=== PATIENT | male | born 1975 | race Caucasian/White ===

== ENCOUNTER 2018-06-28 13:57 | Emergency (ER) | payer MEDICARE, MEDICAID, SELFPAY ==
[2018-06-28 14:02] VITALS: BP 141/91; PULSE 58; RESP 15; TEMP 36.6; O2SAT 99
--- NOTE | 2018-06-28 15:27 | ED.GENADUL_ITS ---
Discharge Plan Disposition Patient Disposition: HOME Condition: Stable Discharge Details Chief Complaint: EarProblem Clinical Impression: Impacted cerumen of left ear Primary Care Provider: Helen Deleon ED Provider: Hubert Johansen Home Meds and New Rx's Prescriptions: Continued naproxen 500 mg tablet 500 mg PO Q12H PRN (Reason: back pain) Qty: 60 RF: 3 baclofen 10 mg tablet 10 mg PO BID MDD 20mg PRN (Reason: sciatica) Qty: 20 RF: 0 cholecalciferol (vitamin D3) 2,000 unit tablet 2,000 unit PO DAILY Qty: 30 RF: 11 Discharge Instructions Instructions: Cerumen Impaction (ED) Additional Instructions: Please continue to use earwax softening drops and gentle irrigation at home as you have been doing. Feel free to return to emergency department for any new or significant worsening of symptoms otherwise follow-up with your primary care provider as needed for reassessment or if you are unable to fully irrigate ear or if you have pain, drainage, fever chills or other concerns. Referrals: Helen Deleon, [employer] [Primary Care Provider] - (As needed for reassessment) Discharge Data Discharge Date/Time-TO BE ENTERED AT DEPARTURE: 06/28/18 15:30 Medical Decision Making Left ear cerumen impaction. Nurse irrigated. Improvement of symptoms but cerumen remains. Patient does have home flush kit so I encouraged patient to continue to use softening drops and irrigate as he normally would but I do not feel that deep impaction is worth attempting to remove due to potential trauma at this time given no other emergent findings and patient having restored hearing and improved pressure. Patient is in agreement with this plan of care stated understanding that he may return as needed or follow-up with primary care provider after discussion of diagnosis and plan of care patient has no further needs, questions, or concerns and states clear understanding to return to the emergency department for any worsening symptoms.. HPI General Mode of arrival: ambulatory . Date/Time Provider Initiated Documentation: 06/28/18 14:00 . Limitations to Documentation: no limitations . Information obtained by: patient and RN notes reviewed . History of Present Illness 43 year old M presents to the emergency department with the chief complaint of left ear hearing loss, Quality is described as other (denies pain), Patient started experiencing this hour(s) (4) and it has been constant. No relieving factors improve symptom(s), Patient notes no other symptoms.. Related Data Home Medications Medication Instructions Recorded Confirmed naproxen 500 mg tablet 500 mg PO Q12H PRN #60 tab 03/10/18 06/28/18 baclofen 10 mg tablet 10 mg PO BID PRN #20 tab MDD 20mg 05/08/18 06/28/18 cholecalciferol (vitamin D3) 2,000 2,000 unit PO DAILY #30 tab-cap 05/08/18 06/28/18 unit tablet Previous Rx's Medication Instructions Recorded naproxen 500 mg tablet 500 mg PO Q12H PRN #60 tab 03/10/18 baclofen 10 mg tablet 10 mg PO BID PRN #20 tab MDD 20mg 05/08/18 cholecalciferol (vitamin D3) 2,000 2,000 unit PO DAILY #30 tab-cap 05/08/18 unit tablet Allergies Allergy/AdvReac Type Severity Reaction Status Date / Time No Known Allergies Allergy Verified 06/28/18 14:07 General Stated Complaint: EarProblem CHRISTOPHER: 4 Review of Systems Constitutional Denies body ache(s), Denies chills, Denies fever(s) and Denies headache(s) ENT Reports as per HPI, Reports abnormal hearing, Denies ear discharge, Denies otalgia, Denies headache(s), Denies disequilibrium and Denies sinus pain Gastrointestinal Denies abdominal pain, Denies nausea and Denies vomiting Integumentary/Breasts Denies rash Neurologic Reports abnormal hearing, Denies confusion, Denies headache(s), Denies sensory deficit and Denies disequilibrium Psychiatric Denies confusion [facility] Surgical History Fracture, Open Treatment (07/28/15) Family History Mother Diabetes Depression Stroke Father No problems noted. Sister Substance abuse Alcohol abuse Depression Sister Essential hypertension Depression Sister Alcohol abuse Sister Substance abuse Alcohol abuse Depression Neoplasm Asthma Grandfather No problems noted. Son Depression Son Depression Social History Smoking and Tabacco status: Current every day Exam Const General: cooperative, no acute distress and not ill appearing Orientation: alert, awake and oriented x3 HENMI Head: normal to inspection and normocephalic Ears: external ears normal, mastoids normal and EAC abnormal cerumen impaction bilaterally; no erythema, no edema and no EA tenderness General nose exam: external nose normal Mouth: moist mucous membranes Neck Neck: normal visual inspection, full ROM and no lymphadenopathy Resp Effort & Inspection: normal respiratory effort, able to speak in complete sentences and no respiratory distress Skin General skin exam: no rashes or lesions noted Neuro General: alert, awake, oriented x3, moves all extremities and no focal motor deficits Sensory Exam: no sensory deficits noted Course Vital Signs Temperature 36.6 C 06/28/18 14:02 Pulse 58 L 06/28/18 14:02 Respiratory Rate 15 06/28/18 14:02 Blood Pressure 141/91 H 06/28/18 14:02 Pulse Oximetry 99 06/28/18 14:02 Temperature 36.6 C 06/28/18 14:02 Temperature Source Temporal Artery Scan 06/28/18 14:02 Pulse 58 L 06/28/18 14:02 Respiratory Rate 15 06/28/18 14:02 Respiratory Effort Non-Labored 06/28/18 14:06 Blood Pressure 141/91 H 06/28/18 14:02 Blood Pressure Position Sitting 06/28/18 14:02 Pulse Oximetry 99 06/28/18 14:02 Oxygen Delivery Method Room Air 06/28/18 14:02 Oxygen Flow Rate 0 06/28/18 14:02 Pain Level 0 06/28/18 14:10
== END 2018-06-28 15:30 | disposition home or self-care (01) ==
PROVIDERS: Emergency Provider Nurse Practitioner Family
DX: H61.22 Impacted cerumen, left ear (principal)
CPT/HCPCS: 69209; 99282

== ENCOUNTER 2018-09-15 20:51 | Emergency (ER) | payer MEDICARE, MEDICAID, SELFPAY ==
--- NOTE | 2018-09-15 20:55 | W.ED.GENAD ---
Discharge Plan Disposition Patient Disposition: HOME Condition: Stable Discharge Details Chief Complaint: EarProblem Clinical Impression: Left ear impacted cerumen Primary Care Provider: Helen Deleon ED Provider: Garrett Hays Home Meds and New Rx's Prescriptions: No Action naproxen 500 mg tablet 500 mg PO Q12H PRN (Reason: back pain) Qty: 60 RF: 3 cholecalciferol (vitamin D3) 2,000 unit tablet 2,000 unit PO DAILY Qty: 30 RF: 11 Discharge Instructions Instructions: Cerumen Impaction (ED) Medical Decision Making 43 yo male with hx of cerumen impaction comes in with cc of left ear pain for a week, no fevers or chills. on exam has left cerumen impaction, will have nursing irrigate and reassess. External canal is normal and normal external mastoid exam nursing able to get significant amount of ear wax out and he feels better, normal tm on exam. Will d/c home Differential Diagnosis cerumen impaction, aom HPI General Mode of arrival: ambulatory. Date/Time Provider Initiated Documentation: 09/15/18 20:52. Limitations to Documentation: no limitations. Information obtained by: patient. History of Present Illness 43 year old M presents to the emergency department with the chief complaint of left ear pain, described as moderate, Quality is described as aching, and is localized to the left (ear). Patient started experiencing this week(s) (1) and it has been constant. No relieving factors improve symptom(s), No exacerbating factors reported . Patient notes no other symptoms.. Patient did receive the following treatments prior to arrival, none Related Data Home Medications Medication Instructions Recorded Confirmed naproxen 500 mg tablet 500 mg PO Q12H PRN #60 tab 18 09/15/18 cholecalciferol (vitamin D3) 2,000 2,000 unit PO DAILY #30 tab-cap 05/08/18 09/15/18 unit tablet Previous Rx's Medication Instructions Recorded naproxen 500 mg tablet 500 mg PO Q12H PRN #60 tab 03/10/18 cholecalciferol (vitamin D3) 2,000 2,000 unit PO DAILY #30 tab-cap 05/08/18 unit tablet Allergies Allergy/AdvReac Type Severity Reaction Status Date / Time No Known Allergies Allergy Verified 04/29/19 21:00 General CHRISTOPHER: 4 Review of Systems Review of Systems All systems reviewed & are unremarkable except as noted in HPI and below Constitutional Denies chills and Denies fever(s) Eyes Denies loss of vision ENT Denies change in voice Cardiovascular Denies chest pain and Denies dyspnea Respiratory Denies dyspnea Gastrointestinal Denies abdominal pain, Denies nausea and Denies vomiting Neurologic Denies loss of vision PFSH Surgical History Fracture, Open Treatment (07/28/15) Family History Mother Diabetes Depression Stroke Father No problems noted. Sister Substance abuse Alcohol abuse Depression Sister Essential hypertension Depression Sister Alcohol abuse Sister Substance abuse Alcohol abuse Depression Neoplasm Asthma Grandfather No problems noted. Son Depression Son Depression Social History Smoking/Tobacco Use Status: Current every day Alcohol Intake: never Drug use: Occasionally Do you feel safe in your relationship?: Yes Exam Const General: no acute distress Orientation: alert HENMT Head: normal to inspection Ears: external ears normal General nose exam: external nose normal Mouth: moist mucous membranes Eyes General: appearance normal, both eyes and all related structures Neck Neck: normal visual inspection Resp Effort & Inspection: normal respiratory effort and able to speak in complete sentences Cardio Rate: regular rate Skin General skin exam: no rashes or lesions noted Neuro General: alert and oriented x3 Extrem General: normal to inspection Psych Mental Status: mental status grossly normal
[2018-09-15 20:58] VITALS: BP 149/85; PULSE 70; RESP 18; TEMP 37.1; O2SAT 97
== END 2018-09-15 22:20 | disposition home or self-care (01) ==
PROVIDERS: Emergency Provider Emergency Medicine
DX: H61.22 Impacted cerumen, left ear (principal)
CPT/HCPCS: 69209; 99281

== ENCOUNTER 2019-04-26 00:18 | Emergency (ER) | payer MEDICARE, MEDICAID, SELFPAY ==
[2019-04-26 00:29] VITALS: BP 161/82; PULSE 66; RESP 20; TEMP 36.8; O2SAT 100
--- NOTE | 2019-04-26 00:35 | ED.GENADUL_ITS ---
Discharge Plan Disposition Patient Disposition: HOME Condition: Good Discharge Details Chief Complaint: Chest/Rib Clinical Impression: Nightmare, Acute post-traumatic stress disorder Primary Care Provider: Helen Deleon ED Provider: Josh Castellon Home Meds and New Rx's Prescriptions: No Action naproxen 500 mg tablet 500 mg PO Q12H PRN (Reason: back pain) Qty: 60 RF: 3 Discharge Instructions Additional Instructions: If you notice any worsening of your symptoms, or any new symptoms such as vomiting, diarrhea, fever, chills, shortness of breath, chest pain, numbness, weakness, or fainting , please return immediately to the emergency department for reevaluation. Please follow up with your primary care provider as soon as possible for reassessment and reevaluation. As always, it was a pleasure participating in your medical care today. Referrals: Helen Deleon, [employer]LE[employer]ITY REGISTRAR [Primary Care Provider] - Medical Decision Making This is a 44-year-old male who presents today for an atypical history. He is a history of seizures when he was a young child, but none for years. He states that this evening he drank some twisted teas, smoke some good weed, had some tuna sandwiches, and then developed left upper quadrant pain, and passed out or had a seizure secondary to mild tremulous movement. EMS was contacted and upon their arrival he is mentating well and showed no focal neurologic deficits. He still complaining of notable left upper quadrant abdominal pain. Upon arrival to the ED his pain was mainly in the left upper quadrant, no chest pain. He has no pleuritic pain. No previous history of current iliac disease. Physical exam does demonstrate reproducible left upper quadrant abdominal pain. Bedside ultrasound shows no evidence of pneumothorax pericardial tamponade not other significant cardiac abnormality. He has no focal neurologic deficits on exam. Differential is broad, gastric ulcer is potential but unlikely due to the typical history. Seizure versus syncope is certainly on the differential. However with a combination of abdominal chest pain in conjunction with the neurologic symptoms in syncope that occurred dissection is also on the differential. We will get CT imaging, perform cardiac work-up, rehydrate, and reassess. 12:59 AM After 15 minutes here in the ED without any medication intervention the patient has had complete resolution of his symptomatology. 1:42 AM The patient's laboratory work-up is recurrent and is notably unremarkable. No white count, no significant electrolyte abnormalities. Troponin normal, alcohol is only 89. On reassessment patient continues to be pain-free. He is refusing CT imaging. Patient states that he recalls the entire initial event, and that it was not a seizure or syncope that he had, rather it was a nightmare secondary to his PTSD, all of which he recalls. He states that this is happened before, and that this is not new. He is wanting to get in touch with his outpatient counseling. He does not want any additional help at this time. He continues to demonstrate a normal neurologic exam, and he is pain-free right now. I did discuss imaging options for the patient and at this time through notable discussion, weighing the risks and benefits, and a shared decision making process the patient has refused imaging at this time. Respecting the patient's wishes we will hold off on imaging. I did discuss how we could be potentially missing a life-threatening etiology, which could lead to lifelong and disability and the patient does clearly understand this. He insists that his symptoms were from a bad dream and not something else concerning. I did discuss with the patient admission/observation to the hospital/ED, and at this time through notable discussion, weighing the risks and benefits, utilizing a shared decision making process, and with a very clear discussion on the benefit of admission and the risks associated with discharge including the unlikely but potential worst case scenario of or lifelong disability the patient has refused admission and would like to go home. Respecting the patient's wishes, they will be discharged home. Patient is also made it very clear that he does not want me to discuss any of this with his secondary to her not knowing any of his past. He would like to bring this up with her personally in a separate environment at home. I have extensively reviewed the treatment plan and discharge instructions with the patient. I have addressed all patient concerns at this time. The patient was made aware of what symptoms to monitor for that would warrant a return to the emergency department. Discussed the plan with the patient, they demonstrate verbal understanding and agreement with our assessment and plan at this time. EKG 00: 46 Rate 63, intervals normal, sinus rhythm, no significant ST elevations or depressions, mild non-tombs stoning elevation less than 1 mm in V2 and V3, old Q waves in lead III. Prior EKG from 02/03 demonstrates similar findings. HPI General Date/Time Provider Initiated Documentation: 04/26/19 00:26 . HPI Narrative: This is a 44-year-old male with a past medical history of depression, hypertension, and history of seizures as a young child which is resolved on its own, who presents today for potential syncope versus seizure and left upper quadrant epigastric pain. The patient states that this evening he was enjoying an evening of alcohol and intimacy with his , they smoked some weed, he drank some alcohol, and then roughly 1 hour ago he developed shortness of breath, severe stabbing left upper quadrant pain, had a tremor, became unresponsive for a short brief period of time. EMS was contacted, when they arrived the patient would answer all questions, vital signs are stable and he demonstrated a normal neurologic exam. Left upper quadrant pain continued. He is brought to the ER for further evaluation. Vital signs remained stable. Patient states that his symptoms are not pleuritic, and the pain feels like it is just under the left side of his rib cage. He denies eating anything spicy tonight, and only had tunafish. He denies any symptoms like this before. He denies any history of significant reflux. He has no other complaints at this time. He denies any vomiting, diarrhea, chest heaviness or significant chest tightness. He denies a history of cardiac disease. He denies any other complaints at this time. Related Data Home Medications Medication Instructions Recorded Confirmed naproxen 500 mg tablet 500 mg PO Q12H PRN #60 tab 03/10/18 04/26/19 Previous Rx's Medication Instructions Recorded naproxen 500 mg tablet 500 mg PO Q12H PRN #60 tab 03/10/18 Allergies Allergy/AdvReac Type Severity Reaction Status Date / Time No Known Allergies Allergy Verified 04/26/19 00:37 General CHRISTOPHER: 4 Review of Systems All systems reviewed & are unremarkable except as noted in HPI and below PFSH Social History (Updated 10/22/18 @ 09:42 by Sunny Bojorquez) Smoking/Tobacco Use Status: Current every day Tobacco Type: cigarettes Alcohol Intake: current Alcohol Intake frequency: holidays/special occasions only Drug use: Never Substance use type: former substance user Caregiver/Support person: No Household members: spouse Housing: house Communication Needs: None Do you need help understanding health information?: Rarely Pets and animals: Yes Pets and animals: cat(s) Sexually active: Yes Do you think of yourself as: straight/heterosexual Current gender identity: female What is your relationship status?: How often do you talk on the phone with friends or family?: three or more times per week How often do you get together with friends or relatives?: three or more times per week How often do you attend mandaen or anabaptism services?: decline to answer Do you belong to any clubs or organized social groups?: no Panel score (0-1 are the most socially isolated patients): 2 What type of physical activity do you participate in: walking and weight lifting Duration: > 90 minutes/day Frequency: 5-6 times per week Karen/Oriental Orthodox: No preference Agree to transfusion: No Seatbelt use: always Helmet use: No Drive intox or ride w/intox national dedicated truck driver: No Do you feel safe in your relationship?: Yes Exam Narrative Exam Narrative: 1.Const: Well-nourished, Well-developed, appearing stated age 2.Eyes: PERRL, no conjunctival injection, and symmetrical lids. 3.ENT: Atraumatic external nose and ears. Moist MM. Neck: Symmetric, trachea midline, No thyromegaly. 4.CVS: +S1/S2, No murmurs or gallops. Peripheral pulses 2+ and equal in all extremities. Brisk capillary refill in all extremities. 5.RESP: Unlabored respiratory effort. Clear to auscultation bilaterally. No wheezes rales or rhonchi 6.GI: Soft,Nondistended, No hepatosplenomegaly. No guarding or rebound. Mild reproducible tenderness in left upper abdominal quadrant. 7.MSK: Normocephalic/Atraumatic, Extremities w/o deformity or ttp No cyanosis or clubbing, Normal movement of all extremities 8.Skin: Warm, Dry. No rashes or lesions. 9.Neuro: partition notcher II-XII grossly intact. Sensation grossly intact, no focal neurologic deficits. All 6 cardinal planes of vision are fully intact. No evidence of rotatory or vertical nystagmus. The patient demonstrated a normal [id number], good dexterity. There was no evidence of dysdiadochokinesia. Patient was able to ambulate without difficulty. There was no wide-based gait. Romberg testing was normal. [id number] testing was normal. Sensation was intact bilaterally as well as muscle strength bilaterally for all extremities. Patient was able to verbalize butter cup with no slurring, or miss pronunciation. 10.Psych: (AAO) x3. Appropriate mood and affect
--- NOTE | 2019-04-26 00:42 | NUR.NOTE ---
Nursing Note: oxygen d/c,d, maintaining saturation at 97-98%. pain is gone at the present time
[2019-04-26 00:59] LABS: Abs Immature Grans 0.01 k/cumm (0.0-0.09); Absolute Basophil Count 0.07 k/cumm (0.0-0.2); Absolute Eosinophil Count 0.44 k/cumm (0.0-0.7); Absolute Lymphocyte Count 3.85 k/cumm (1.2-3.4); Absolute Monocyte Count 0.78 k/cumm (0.11-0.7); Absolute Neutrophil Count 4.47 k/cumm (1.2-6.7); Basophils % 0.7; Eosinophils % 4.6; HCT 41.8 % (40.0-50.0); HGB 15.1 g/dL (13.5-17.5); Immature Grans % 0.1; Mean Corp. HGB Concentration 36.1 g/dL (32.0-36.0); Mean Corpuscular Hemoglobin 31.5 pg (27.0-33.0); Mean Corpuscular Volume 87.1 fL (80-95); Mean Platelet Volume 10.7 fL (8.0-11.0); Monocytes % 8.1; Neutrophils % 46.5; Platelet Count 360 x1000/uL (130-400); RBC Distribution Width 12.7 % (11.8-14.1); White Blood Cell Count 9.62 k/cumm (4.4-10.8)
[2019-04-26] MEDS: Normal Saline 1,000 ML 1000 ML IV (01:00)
[2019-04-26 01:17] LABS: ETHANOL BLOOD 89.6 mg/dL (<3)
[2019-04-26 01:19] LABS: ALT 35 U/L (16-63); AST 19 U/L (15-37); Albumin 4.3 g/dL (3.4-5.0); Alkaline Phosphatase 88 U/L (46-116); Anion Gap 1.7 mmol/L (3-11); BUN 10 mg/dL (7-18); Bilirubin, Total 0.4 mg/dL (0.2-1.0); CO2 23.3 mmol/L (21.0-32.0); CREATININE 0.97 mg/dL (0.70-1.30); Calcium 9.3 mg/dL (8.5-10.1); Chloride 105 mmol/L (98-107); Glucose 101 mg/dL (74-106); Potassium 3.3 mmol/L (3.5-5.1); Sodium 130 mmol/L (136-145); Total Protein 7.4 g/dL (6.4-8.2)
[2019-04-26 01:20] LABS: Troponin I < 0.05 ng/Ml (<0.06)
[2019-04-26] MEDS: Omnipaque 350 MG/ML 100 ML BTL IJ (01:24)
[2019-04-26 01:53] VITALS: BP 137/93; PULSE 56; RESP 18; O2SAT 99
== END 2019-04-26 02:05 | disposition home or self-care (01) ==
PROVIDERS: Emergency Provider Student in an Organized Health Care Education/Training Program
DX: F51.5 Nightmare disorder (principal); F43.10 Post-traumatic stress disorder, unspecified
CPT/HCPCS: 80053; 93005; 99284; 80320; 84484; 85025; 93010; J3490

== ENCOUNTER 2020-01-19 04:15 | Outpatient (CLI) | payer MEDICARE, MEDICAID, SELFPAY ==
[2020-01-19 10:06] LABS: ALT 37 U/L (16-63); AST 15 U/L (15-37); Albumin 4.1 g/dL (3.4-5.0); Alkaline Phosphatase 92 U/L (46-116); Anion Gap 9.2 mmol/L (3-11); BUN 21 mg/dL (7-18); Bilirubin, Total 0.6 mg/dL (0.2-1.0); CO2 24.8 mmol/L (21.0-32.0); CREATININE 1.19 mg/dL (0.70-1.30); Calcium 9.5 mg/dL (8.5-10.1); Calculated LDL 105 mg/dL (<100); Chloride 107 mmol/L (98-107); Cholesterol 180 mg/dL (<200); Glucose 93 mg/dL (74-106); HDL Cholesterol 52 mg/dL (40-60); Potassium 4.7 mmol/L (3.5-5.1); Sodium 141 mmol/L (136-145); Total Protein 6.7 g/dL (6.4-8.2); Triglyceride 117 mg/dL (<150)
[2020-01-21 04:44] LABS: Vitamin D 25 Total 38.8 ng/ml (30-100)
[2020-01-21 13:13] LABS: Testosterone, Total 448 ng/dL (240-950)
== END 2020-01-19 04:35 ==
DX: I10 Essential (primary) hypertension (principal); E03.9 Hypothyroidism, unspecified; E55.9 Vitamin D deficiency, unspecified; F17.200 Nicotine dependence, unspecified, uncomplicated
CPT/HCPCS: 36415; 80053; 80061; 82306; 84403

== ENCOUNTER 2020-02-01 01:12 | Outpatient (CLI) | payer MEDICARE, MEDICAID, SELFPAY ==
--- NOTE | 2020-02-01 08:00 | DI.CT_ITS ---
EXAM: CT ABDOMEN PELVIS W CLINICAL HISTORY: Intermittent LLQ pain x 9 months,? DIVERTICULITIS,R10.32 TECHNIQUE: COMPARISON: No exams were available for comparison FINDINGS: CT examination of the abdomen and pelvis was performed with bolus infusion of 100 cc of Omnipaque 350 . Images obtained through the lung bases are unremarkable. The liver and spleen appear normal as does the pancreas. Gallbladder and bile ducts are unremarkable. The right adrenal contains an 18 millimeter in diameter nodule with average attenuation 39 Hounsfield units. Probably benign but indeterminate, follow-up adrenal CT recommended in 12 months. 10 millim eter left adrenal lesion also. Kidneys appear normal with no evidence of renal mass, hydronephrosis, or nephrolithiasis. There is w all urinary bladder this is nonspecific but may represent bladder outlet obstruction versus cystitis. Clinically. There is no evidence of abdominal or pelvic adenopathy. Abdominal aorta is of normal diameter and no major vascular abnormality is seen. Appendix is normal. No evidence diverticulitis or bowel obstruction. No significant abdominal wall hernia seen. Impression: Mild urinary bladder wall thickening, urinary bladder outlet obstruction versus cystitis. Incidental 18 millimeter right adrenal nodule, probably benign, follow-up adrenal CT recommended in 1 2 months. RADIATION DOSE DELIVERED: 1,162.92mGy.cm Total DLP 1,162.92mGy.cm Total DLP DATA REPOSITORY: All CT scans at this facility are submitted to the National Radiology Data Registry (NRDR) Dose Index Registry (DIR) with the [employer] (ACR). RADIATION OPTIMIZATION: All CT scans at this facility use at least one of these dose optimization te chniques: automated exposure control; mA and/or kV adjustment per patient size (includes targeted exa ms where dose is matched to clinical indication); or iterative reconstruction.
[2020-02-01] MEDS: Omnipaque 350 MG/ML 50 ML BTL IJ (12:44)
[2020-02-01] MEDS: Omnipaque 350 MG/ML 100 ML BTL IJ (12:44)
[2020-02-01] MEDS: Normal Saline - Diluent 50 ML VIAL IV (12:46)
== END 2020-02-01 01:32 ==
DX: E27.8 Other specified disorders of adrenal gland (principal); R10.32 Left lower quadrant pain
CPT/HCPCS: 74177; J3490; Q9967

== ENCOUNTER 2020-03-13 13:37 | Emergency (ER) | payer MEDICARE, MEDICAID, SELFPAY ==
--- NOTE | 2020-03-13 13:38 | W.ED.GENAD ---
Discharge Plan Disposition Patient Disposition: HOME Condition: Good Discharge Details Clinical Impression: Impacted cerumen of left ear Primary Care Provider: Helen Deleon ED Provider: Jess Delgado Home Meds and New Rx's Prescriptions: Continued baclofen 10 mg tablet 10 mg PO BID MDD 20mg PRN (Reason: sciatica) Qty: 20 RF: 0 naproxen 500 mg tablet 500 mg PO Q12H PRN (Reason: back pain) Qty: 60 RF: 3 Discharge Instructions Instructions: Cerumen Impaction (ED) Additional Instructions: Your ear has been flushed today. Please continue with your previous measurement. Please make sure to take time to care for your ears as we discussed. If you notice any pain, discharge, fever/chills or new/worsening symptom please seek care urgently once again. Otherwise, please follow-up with primary care in the next 2 weeks for reevaluation and discuss your recurrent cerumen impaction. Referrals: Helen Deleon, DAVID [Primary Care Provider] - Discharge Data Discharge Date/Time-TO BE ENTERED AT DEPARTURE: 03/13/20 14:45 Medical Decision Making Patient presents today with chief complaint of left sided ear pain. Reports has been worsening over the past several days. He has difficulty with cerumen impactions here historically. States that he did ask his to try to clean this out as a doing flush kit at home but she was unsuccessful this morning. States that he has had a hard time hearing and has had some vertiginous symptoms. Denies any fevers or chills. Minimal discomfort in the left ear. On exam, patient appears nontoxic. He does have diminished hearing in the left ear. She has impacted cerumen on the affected side. No mastoid tenderness. No lymphadenopathy. Patient does not appear systemically ill. She is able to able to cleanse the ear and he is feeling much improved at this time. Is requesting discharge. He does use earwax softening drops nightly and has his claims on a routine basis. Over, she does not allow for enough time for his work week to have his ears flushed. I encouraged to take the time to do so. Strict return precautions were discussed. Advised that he follow-up with primary care in 1 to 2 weeks for reevaluation and discuss any continued options that have yet to be explored for repetitive cerumen impaction. All his questions and concerns were addressed and is agreement this plan HPI General Mode of arrival: ambulatory. Date/Time Provider Initiated Documentation: 03/13/20 13:38. Limitations to Documentation: no limitations. Information obtained by: patient and RN notes reviewed. History of Present Illness 45 year old M presents to the emergency department with the chief complaint of left ear blocked, diminished hearing, described as mild, with intensity rated at 1. Quality is described as aching, Patient reports no radiation. Patient started experiencing this day(s) (1) and it has been constant. No relieving factors improve symptom(s), No exacerbating factors reported . Patient notes no other symptoms.. Patient did receive the following treatments prior to arrival, other ( attempted to irrigate without success) Related Data Home Medications Medication Instructions Recorded Confirmed baclofen 10 mg tablet 10 mg PO BID PRN #20 tab MDD 20mg 09/08/19 03/13/20 naproxen 500 mg tablet 500 mg PO Q12H PRN #60 tab 09/08/19 03/13/20 Previous Rx's Medication Instructions Recorded baclofen 10 mg tablet 10 mg PO BID PRN #20 tab MDD 20mg 09/08/19 naproxen 500 mg tablet 500 mg PO Q12H PRN #60 tab 09/08/19 Allergies Allergy/AdvReac Type Severity Reaction Status Date / Time No Known Allergies Allergy Verified 03/13/20 13:45 General CHRISTOPHER: 4 Review of Systems Constitutional Constitutional: Reports as per HPI and Denies headache(s) Eyes Eyes: Reports as per HPI, Denies eye discharge and Denies irritation ENT Ears, Nose, Mouth, and Throat: Reports as per HPI and Denies headache(s) Cardiovascular Cardiovascular: Reports as per HPI, Denies chest pain and Denies dyspnea Respiratory Respiratory: Reports as per HPI and Denies dyspnea Gastrointestinal Gastrointestinal: Reports as per HPI, Denies abdominal pain, Denies change in bowel habits, Denies nausea and Denies vomiting Integumentary/Breasts Skin/Breast: Reports as per HPI and Denies rash Neurologic Neurologic: Reports as per HPI and Denies headache(s) [facility] Medical History (Updated 03/13/20 @ 14:37 by JET Carrasquillo) Abdominal pain Depression (02/18/17) Essential hypertension Impotence due to erectile dysfunction LLQ abdominal pain Lumbago (12/24/12) Pressure sensation in left ear (07/18/17) Smoking (09/04/17) Vitamin D deficiency Surgical History Fracture, Open Treatment (07/28/15) ORIF-RIGHT DISTAL TIBIA; DR. REYES Family History Mother Diabetes Depression Stroke Hyperlipidemia Hypertension Father Heart disease Hyperlipidemia Hypertension Sister Substance abuse Alcohol abuse Depression Sister Essential hypertension Depression Sister Alcohol abuse Sister Substance abuse Alcohol abuse Depression Asthma Cancer Son Depression Son Depression Social History (Updated 10/27/19 @ 09:31 by Sunny Bojorquez) Smoking/Tobacco Use Status: Current every day Tobacco Type: cigarettes Quit status: considering quitting Second Hand Exposure: Yes Alcohol Intake: current Alcohol Intake frequency: holidays/special occasions only Drug use: Never Substance use type: former substance user Counseling given: No Counseling provided: none Caregiver/Support person: No Household members: spouse Housing: house Communication Needs: None Do you need help understanding health information?: Rarely Pets and animals: Yes Pets and animals: cat(s) Sexually active: Yes Do you think of yourself as: straight/heterosexual Current gender identity: male What is your relationship status?: How often do you talk on the phone with friends or family?: three or more times per week How often do you get together with friends or relatives?: three or more times per week How often do you attend sikhism or scientologist services?: 1-3 times per year Do you belong to any clubs or organized social groups?: no Panel score (0-1 are the most socially isolated patients): 2 What type of physical activity do you participate in: walking and weight lifting Duration: 45-60 minutes/day Frequency: 5-6 times per week Karen/Bahai: Kaitlin Special karen needs: No Agree to transfusion: No Seatbelt use: always Helmet use: No Drive intox or ride w/intox 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 Head: normal to inspection, normocephalic and atraumatic Ears: hearing grossly normal bilaterally, external ears normal, TM normal on the right and left TM abnormal (cerumen impaction) General nose exam: external nose normal and nares normal Face and sinus: normal facial exam, sinuses nontender and face symmetric Mouth: oral mucosae normal, lip normal, tongue normal, oropharynx normal and moist mucous membranes Teeth and gingiva: dentition normal Throat: posterior oropharynx normal, tonsils normal and uvula midline Eyes General: appearance normal, both eyes and all related structures Neck Neck: normal visual inspection, full ROM, no lymphadenopathy and no meningeal signs Resp Effort & Inspection: normal respiratory effort, able to speak in complete sentences and no respiratory distress Auscultation: clear to auscultation bilaterally, no rales, no rhonchi and no wheezes Cardio Rate: regular rate Rhythm: regular rhythm Heart Sounds: S1 normal and S2 normal Skin General skin exam: no rashes or lesions noted Neuro General: patient alert and patient awake Cognition: normal cognition Speech: speech normal Gait: normal gait Psych Appearance: grossly normal and well kempt Mental Status: mental status grossly normal Speech and Movement: speech and movement normal
[2020-03-13 13:39] VITALS: BP 138/99; PULSE 81; TEMP 36.3; O2SAT 100
== END 2020-03-13 14:45 | disposition home or self-care (01) ==
PROVIDERS: Emergency Provider Physician Assistant
DX: H61.22 Impacted cerumen, left ear (principal); I10 Essential (primary) hypertension
CPT/HCPCS: 69209; 99282; 99283

== ENCOUNTER 2020-05-06 23:03 | Emergency (ER) | payer MEDICARE, MEDICAID, SELFPAY ==
[2020-05-06] VITALS (11 sets, daily range): BP systolic 126–163; BP diastolic 71–101; PULSE 63–74; RESP 10–21; TEMP 36.6; O2SAT 93–99
--- NOTE | 2020-05-06 00:30 | DI.RAD_ITS ---
EXAM: XR PORTABLE CHEST AP CLINICAL HISTORY: left chest pain TECHNIQUE: 2D digital imaging was performed. COMPARISON: CR CHEST 2 VIEWS PA,LAT from 02/09/2017 FINDINGS: MEDIASTINUM: Normal. HEART: Normal. PULMONARY VASCULATURE: Normal. LUNGS: Mild bilateral parahilar interstitial alveolar infiltrates are seen, left greater than right. PLEURAL SPACE: No pleural effusion or pneumothorax. BONE:Within normal limits for the patient's age. OTHER FINDINGS:There are low lung volumes. IMPRESSION: Mild perihilar interstitial and alveolar infiltrates which may represent atelectasis. Pulmonary sunny a or infection cannot be excluded. Please correlate clinically. DATA REPOSITORY: RADIATION DOSE DELIVERED:
--- NOTE | 2020-05-06 23:00 | RT.EKG_ITS ---
APPROVED REPORT Exam: Resting ECG Patient Location: E HR:64 bpm ECG Measurements Heart Rate 64 AXIS OR 211 P 54 QRSd 98 QRS 47 QT 407 T 66 QTc 421 Conclusion Sinus rhythm...normal P axis, V-rate 60- 99 Prolonged OR interval...OR >210, V-rate 50- 90 physician: Rate 64, sinus rhythm, intervals normal, no significant ST elevations or depressions, no evidence of STEMI.
--- NOTE | 2020-05-06 23:14 | W.ED.GENAD ---
Discharge Plan Disposition Patient Disposition: HOME Condition: Stable Discharge Details Clinical Impression: Chest pain, Acute chest wall pain Primary Care Provider: Helen Deleon ED Provider: Josh Castellon Home Meds and New Rx's Prescriptions: Continued baclofen 10 mg tablet 10 mg PO BID MDD 20mg PRN (Reason: sciatica) Qty: 20 RF: 0 naproxen 500 mg tablet 500 mg PO Q12H PRN (Reason: back pain) Qty: 60 RF: 3 Discharge Instructions Instructions: Chest Pain (ED), Chest Wall Pain (ED) Additional Instructions: At this time your multiple EKGs and multiple heart markers have returned normal. Your chest x-ray shows no evidence of pneumonia, and your symptoms have resolved with ibuprofen/Toradol. I suspect that the cause of your symptoms is likely a muscle strain from overwork however with your history I do feel it is very important that you get a stress test at some point soon. We will help facilitate this and you will be contacted by the stress test department for scheduling. At this time your symptoms are inconsistent with a heart attack. As we discussed together you preferred but I do not work-up your at this early hour, however she can call me and discuss any questions that she may have. I will be working straight for the next week, and my shifts start at 8 PM. If you notice any worsening of your symptoms, or any new symptoms such as vomiting, diarrhea, fever, chills, shortness of breath, chest pain, numbness, weakness, or fainting , please return immediately to the emergency department for reevaluation. Please follow up with your primary care provider as soon as possible for reassessment and reevaluation. As always, it was a pleasure participating in your medical care today. Referrals: Helen Deleon, ENGRAVER SIGNATURE [Primary Care Provider] - Medical Decision Making This is a 45-year-old male with a past medical history of hypertension that is poorly controlled, who presents today for evaluation of left-sided chest pain. Patient states that for the last day or so he has felt slightly weak and out of sorts. Notable fatigue compared to normal. This evening at 7 PM he developed a significant left-sided chest wall tightness, with tingling extending down his left arm. He denies any tearing stabbing or ripping sensation. He denies any syncope or back pain. Pain has been unremitting since then. He has not been doing much in the way of exertion over the last few days secondary to his fatigue, and denies any exertional component otherwise. He does admit to a strong family history of cardiac disease including pacemaker for his father, massive myocardial infarction in the 40s for his grandfather. He does smoke significantly and has been doing so for years. He does admit to mild pleuritic component to his symptoms but denies any cough fever or chills. Denies PE risk factors such as recent long car rides, immobilization, recent surgery, prior history of DVT or PE, family history of PE or DVT, morbid obesity, exogenous estrogen and smoking, hemoptysis, history of cancer. No other complaints at this time. No other modifying factors. Exam is unremarkable, vital signs appear stable. EKG shows no signs of STEMI. Differential is broad but includes atypical cardiac etiology, PE, or musculoskeletal strain. We will get serial troponins, D-dimer, evaluate for heart strain with a proBNP, give nitroglycerin monitor closely and reassess. 3 AM Patient was given 2 nitroglycerin and had no change or improvement of his symptoms whatsoever. About 30 minutes later he was given a Lidoderm patch and Toradol and had notable improvement of his symptomatology. Work-up has returned, no white count bandemia or left shift. D-dimer is unremarkable, no suspicion for PE. Electrolytes normal, proBNP is normal suggesting no heart strain, initial and repeat troponin are normal, initial and repeat EKG are unchanged with no evidence of STEMI or hyperacute T wave changes of significance. Thyroid and lipase are normal. Chest x-ray negative for significant acute process, mild atelectasis however the patient denies any significant cough, fever or chills. No clinical evidence of pneumonia at all. Signs and symptoms at this time are clinically inconsistent with ACS and more consistent with musculoskeletal strain. On reassessment pain and symptomatology is completely resolved. Symptoms are inconsistent with PE or dissection. At this time patient would like to go home. I did offer potential prolonged observation here overnight in the hospital and he has declined. I did recommend outpatient stress testing, and we will start the process for this on his behalf. I did offer to call his however due to the current hour he would prefer that I not called in to wake her up, and I did make it clear that I am available to discuss this case at any time if she would like to call later during my subsequent chest. At this time with his signs and symptoms clinically inconsistent with acute life-threatening etiology the patient is stable for discharge home. Discussed red flags which return. I have extensively reviewed the treatment plan and discharge instructions with the patient. I have addressed all patient concerns at this time. The patient was made aware of what symptoms to monitor for that would warrant a return to the emergency department. Discussed the plan with the patient, they demonstrate verbal understanding and agreement with our assessment and plan at this time. EKG 23: 11 Rate 64, sinus rhythm, intervals normal, no significant ST elevations or depressions, no evidence of STEMI. FINDINGS: Lungs: Low lung volumes. Mild central vascular congestion. Mild bilateral perihilar and basilar interstitial and alveolar opacities, left greater than right, consistent with subsegmental atelectasis versus pulmonary edema or mild perihilar pulmonary infection/pneumonia. Pleural space: No pleural effusion. No pneumothorax. Heart/Mediastinum: Heart size normal. No tracheal/mediastinal shift. Bones/joints: No acute osseous abnormalities are identified. IMPRESSION: 1. Low lung volumes. 2. Mild perihilar interstitial and alveolar densities which may largely represent perihilar subsegmental atelectasis from low lung volumes, however cannot exclude mild perihilar edema or infection. Thank you for allowing us to participate in the care of your patient. Dictated and Authenticated by: Daron Burdick MD 05/07/2020 12:44 AM Eastern Time ([place] & [place]) HPI General Date/Time Provider Initiated Documentation: 05/06/20 23:08. HPI Narrative: This is a 45-year-old male with a past medical history of hypertension that is poorly controlled, who presents today for evaluation of left-sided chest pain. Patient states that for the last day or so he has felt slightly weak and out of sorts. Notable fatigue compared to normal. This evening at 7 PM he developed a significant left-sided chest wall tightness, with tingling extending down his left arm. He denies any tearing stabbing or ripping sensation. He denies any syncope or back pain. Pain has been unremitting since then. He has not been doing much in the way of exertion over the last few days secondary to his fatigue, and denies any exertional component otherwise. He does admit to a strong family history of cardiac disease including pacemaker for his father, massive myocardial infarction in the 40s for his grandfather. He does smoke significantly and has been doing so for years. He does admit to mild pleuritic component to his symptoms but denies any cough fever or chills. Denies PE risk factors such as recent long car rides, immobilization, recent surgery, prior history of DVT or PE, family history of PE or DVT, morbid obesity, exogenous estrogen and smoking, hemoptysis, history of cancer. No other complaints at this time. No other modifying factors. Related Data Home Medications Medication Instructions Recorded Confirmed baclofen 10 mg tablet 10 mg PO BID PRN #20 tab MDD 20mg 09/08/19 05/06/20 naproxen 500 mg tablet 500 mg PO Q12H PRN #60 tab 09/08/19 05/06/20 Previous Rx's Medication Instructions Recorded baclofen 10 mg tablet 10 mg PO BID PRN #20 tab MDD 20mg 09/08/19 naproxen 500 mg tablet 500 mg PO Q12H PRN #60 tab 09/08/19 Allergies Allergy/AdvReac Type Severity Reaction Status Date / Time No Known Allergies Allergy Verified 05/06/20 23:11 General Stated Complaint: Chest Pain CHRISTOPHER: 2 Review of Systems All systems reviewed & are unremarkable except as noted in HPI and below PFSH Medical History Abdominal pain Adrenal nodule Right - 18mm by CT-most likely benign Rec. F/U 12 months Depression (02/18/17) Essential hypertension Impotence due to erectile dysfunction LLQ abdominal pain Lumbago (12/24/12) Pressure sensation in left ear (07/18/17) Smoking (09/04/17) Vitamin D deficiency Surgical History Fracture, Open Treatment (07/28/15) ORIF-RIGHT DISTAL TIBIA; DR. REYES Family History Mother Diabetes Depression Stroke Hyperlipidemia Hypertension Father Heart disease Hyperlipidemia Hypertension Sister Substance abuse Alcohol abuse Depression Sister Essential hypertension Depression Sister Alcohol abuse Sister Substance abuse Alcohol abuse Depression Asthma Cancer Son Depression Son Depression Social History (Reviewed 12/18/20 @ 23:47 by MARIELY Kaplan Smoking/Tobacco Use Status: Current every day Tobacco Type: cigarettes Quit status: considering quitting Second Hand Exposure: Yes Smoking risk assessment performed?: Yes Alcohol Intake: current Alcohol Intake frequency: holidays/special occasions only Drug use: Never Substance use type: former substance user Counseling given: No Counseling provided: none Caregiver/Support person: No Household members: spouse Housing: house Communication Needs: None Do you need help understanding health information?: Rarely Pets and animals: Yes Pets and animals: cat(s) Sexually active: Yes Do you think of yourself as: straight/heterosexual Current gender identity: male What is your relationship status?: How often do you talk on the phone with friends or family?: three or more times per week How often do you get together with friends or relatives?: three or more times per week How often do you attend pentecostalism or episcopalian services?: 1-3 times per year Do you belong to any clubs or organized social groups?: no Panel score (0-1 are the most socially isolated patients): 2 What type of physical activity do you participate in: walking and weight lifting Duration: 45-60 minutes/day Frequency: 5-6 times per week Karen/Roman Catholic: [facility] Special karen needs: No Agree to transfusion: No Seatbelt use: always Helmet use: No Drive intox or ride w/intox 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 3.ENT: Atraumatic external nose and ears. Moist MM. Neck: Symmetric, trachea midline, No thyromegaly. 4.CVS: +S1/S2, No murmurs or gallops. Peripheral pulses 2+ and equal in all extremities. Brisk capillary refill in all extremities. Symmetric pulses bilaterally, no reproducible chest wall tenderness 5.RESP: Unlabored respiratory effort. Clear to auscultation bilaterally. No wheezes rales or rhonchi 6.GI: Soft, Nontender/Nondistended, No hepatosplenomegaly. No guarding or rebound. 7.MSK: Normocephalic/Atraumatic, Extremities w/o deformity or ttp No cyanosis or clubbing, Normal movement of all extremities, no calf tenderness 8.Skin: Warm, Dry. No rashes or lesions. 9.Neuro: health outreach worker II-XII grossly intact. Sensation grossly intact, no focal neurologic deficits. Sensation intact to the left and right upper extremities bilaterally 10.Psych: (AAO) x3. Appropriate mood and affect Course Vital Signs Vital signs: Vital Signs Temperature 36.6 C 05/06/20 23:05 Pulse 69 05/06/20 23:05 Respiratory Rate 16 05/06/20 23:05 Blood Pressure 141/84 H 05/06/20 23:05 Temperature 36.6 C 05/06/20 23:05 Temperature Source Skin 05/06/20 23:05 Pulse 69 05/06/20 23:05 Respiratory Rate 16 05/06/20 23:05 Respiratory Effort Non-Labored 05/06/20 23:10 Blood Pressure 141/84 H 05/06/20 23:05 Blood Pressure Position Sitting 05/06/20 23:05 Oxygen Delivery Method Room Air 05/06/20 23:05 Oxygen Flow Rate 0 05/06/20 23:05 Pain Level 1 05/06/20 23:05
[2020-05-06] MEDS: Aspirin 81 MG CHEW 324 MG CH (23:18)
[2020-05-06] MEDS: Normal Saline 500 ML IV (23:18)
[2020-05-06] MEDS: nitroGLYcerin 0.4 MG TAB SL ×2 (23:18→23:52)
[2020-05-06 23:21] LABS: Abs Immature Grans 0.03 10^3/uL (0.0-0.06); Absolute Basophil Count 0.08 10^3/uL (0.0-0.2); Absolute Eosinophil Count 0.46 10^3/uL (0.0-0.7); Absolute Lymphocyte Count 4.56 10^3/uL (1.2-3.4); Absolute Monocyte Count 0.83 10^3/uL (0.1-0.8); Absolute Neutrophil Count 4.36 10^3/uL (1.2-6.7); Basophils % 0.8; Eosinophils % 4.5; HCT 42.3 % (40.0-50.0); HGB 14.7 g/dL (13.5-17.5); Immature Grans % 0.3; Lymphocytes % 44.2; MCH 31.3 pg (27.0-33.0); MCHC 34.8 % (32.0-36.0); MPV 10.5 fL (8.0-11.0); Neutrophils % 42.2; Nucleated RBC 0 %; Platelet Count 302 10^3/uL (130-400); RDW 12.4 % (11.8-14.1); RDW-SD 40.8 fL; WBC 10.32 10^3/uL (4.4-10.8)
[2020-05-06 23:46] LABS: ALT 36 U/L (16-63); AST 22 U/L (15-37); Albumin 4.2 g/dL (3.4-5.0); Alkaline Phosphatase 100 U/L (46-116); Anion Gap 12.1 mmol/L (3-11); BUN 7 mg/dL (7-18); Bilirubin, Total 0.4 mg/dL (0.2-1.0); CO2 23.9 mmol/L (21.0-32.0); CREATININE 1.08 mg/dL (0.70-1.30); Calcium 8.9 mg/dL (8.5-10.1); Chloride 106 mmol/L (98-107); Glucose 97 mg/dL (74-106); Lipase 90 U/L (73-393); NT-proBNP 16 pg/mL (<300); Potassium 3.9 mmol/L (3.5-5.1); Sodium 142 mmol/L (136-145); TSH (W/Ref FT4) 1.44 uIU/mL (0.36-3.74); Total Protein 7.1 g/dL (6.4-8.2); Troponin I < 0.05 ng/mL (<0.06)
[2020-05-06 23:49] LABS: PTT Activated 22.7 sec (21.0-27.5); Prothrombin Time 9.6 sec (9.3-11.0)
[2020-05-06 23:52] LABS: D-Dimer 309 ng/mlFEU (<500)
[2020-05-07] VITALS (28 sets, daily range): BP systolic 118–136; BP diastolic 75–89; PULSE 50–66; RESP 10–20; O2SAT 91–98
[2020-05-07] MEDS: Ketorolac 30 MG/ML VIAL IVP (00:14)
[2020-05-07] MEDS: Lidocaine 5% Patch 1 PATCH TP (00:14)
--- NOTE | 2020-05-07 00:45 | DI.VRAD_ITS ---
PROCEDURE INFORMATION: Exam: XR Chest, 1 View Exam date and time: 05/06/2020 11:10 PM Age: 45 years old Clinical indication: Left-sided chest pain TECHNIQUE: Imaging protocol: XR of the chest Views: 1 view. COMPARISON: CR CHEST 2 VIEWS PA,LAT 02/09/2017 10:46 PM FINDINGS: Lungs: Low lung volumes. Mild central vascular congestion. Mild bilateral perihilar and basilar interstitial and alveolar opacities, left greater than right, consistent with subsegmental atelectasis versus pulmonary edema or mild perihilar pulmonary infection/pneumonia. Pleural space: No pleural effusion. No pneumothorax. Heart/Mediastinum: Heart size normal. No tracheal/mediastinal shift. Bones/joints: No acute osseous abnormalities are identified. IMPRESSION: 1. Low lung volumes. 2. Mild perihilar interstitial and alveolar densities which may largely represent perihilar subsegmental atelectasis from low lung volumes, however cannot exclude mild perihilar edema or infection. Dictated and Authenticated by: Daron Burdick MD. Ordering:JOAN Moreno MD
--- NOTE | 2020-05-07 00:45 | RT.EKG_ITS ---
APPROVED REPORT Exam: Resting ECG Patient Location: E HR:52 bpm ECG Measurements Heart Rate 52 AXIS NV 215 P 27 QRSd 97 QRS 51 QT 442 T 81 QTc 410 Conclusion Sinus bradycardia...rate< 60 Prolonged NV interval...NV >210, V-rate 50- 90 No stemi
[2020-05-07 02:42] LABS: Troponin I < 0.05 ng/mL (<0.06)
== END 2020-05-07 03:20 | disposition home or self-care (01) ==
PROVIDERS: Emergency Provider Student in an Organized Health Care Education/Training Program
DX: R07.81 Pleurodynia (principal); R20.2 Paresthesia of skin; I10 Essential (primary) hypertension; F17.210 Nicotine dependence, cigarettes, uncomplicated
CPT/HCPCS: 36415; 80053; 83690; 93005; 96361; 96374; 99285; 71045; 83880; 84443; 84484; 85025; 85379; 85610; 85730; 93010; 99284; J1885

== ENCOUNTER 2020-05-12 02:34 | Outpatient (CLI) | payer MEDICARE, MEDICAID, SELFPAY ==
[2020-05-13 17:02] LABS: COVID-19 RT-PCR UVMMC Result Negative (Negative)
== END 2020-05-12 02:54 ==
PROVIDERS: Visit Provider Internal Medicine Cardiovascular Disease
DX: Z11.59 Encounter for screening for other viral diseases (principal); Z01.810 Encounter for preprocedural cardiovascular examination
CPT/HCPCS: U0003

== ENCOUNTER 2020-05-16 00:49 | Outpatient (CLI) | payer MEDICARE, MEDICAID, SELFPAY ==
--- NOTE | 2020-05-16 | ETT_ITS ---
APPROVED REPORT Exam: Exercise Treadmill Patient Location: Out-Patient Room/Bed: Stress Nurse: Bridgett Lopes RN BMI: 29.52 Baseline Rhythm: Sinus Rhythm Indications: Chest pain w/ SOB. Medical History Medical History: HTN, current smoker. Cardiac Medications: None. Allergies: No known drug allergies Cardiac Risk Factors: HTN, Smoking (current) Previous Cardiac Procedures: None. Pretest Chest Pain Characteristics: None. Exercise History: Sedentary Physical Disabilities: None. Lung Sounds: Clear to auscultation Heart Sounds: Regular Stress Test Details Test: Exercise stress testing was performed using a García protocol. Rest Stress HR Resting HR Supine: 60 bpm Max Heart Rate (APMHR): 175 bpm Resting HR Standin bpm Target HR (85% APMHR): 148 bpm Max HR Achieved: 141 bpm % of APMHR: 80 Recovery HR: 79 bpm HR response to stress: Normal HR response to stress BP Resting BP Supine: 154/88 mmHg Resting BP Standin/90 mmHg Max BP: 180/84 mmHg Recovery BP: 160/88 mmHg BP response to stress: Normal blood pressure response to stress. ECG Resting ECG: Sinus Rhythm Ectopy: None. Stress ECG: Sinus Tachycardia ST Change: No significant ST segment changes noted. Arrhythmia: None. Recovery ECG: Sinus Rhythm Recovery ST Change: No significant ST segment changes noted. Recovery Arrhythmia: None Clinical Reason for Termination: Dyspnea Stress Symptoms: Dyspnea Exercise duration: 7 min48 sec Highest Stage Reached: Stage 3: 3.4 mph at 14% grade. Exercise capacity: 9.83 METs Stress ECG Conclusion 1. The resting electrocardiogram was normal 2. The García protocol and completed a workload of 9.83 METS, limited by dyspnea 3. Normal heart rate and blood pressure response to exercise 4. Patient achieved 80% of predicted heart rate for age. At that submaximal level of heart rate, the re was no electrocardiographic evidence of myocardial ischemia 5. There were no dysrhythmias 6. Hood treadmill score is 7, low risk Stress Test Summary STAGE Time (mins) Speed (mph) Grade (%) HR BP SYMPTOMS METS Supine 60 154/88 Standing 67 150/90 1 3 1.7 10 98 158/86 4.6 2 6 2.5 12 121 172/80 7 1 min recovery 122 178/82 3 min recovery 88 180/84 6 min recovery 79 160/88
== END 2020-05-16 01:09 ==
PROVIDERS: Visit Provider Student in an Organized Health Care Education/Training Program
DX: R07.9 Chest pain, unspecified (principal); R06.02 Shortness of breath; I10 Essential (primary) hypertension; F17.210 Nicotine dependence, cigarettes, uncomplicated
CPT/HCPCS: 93016; 93018; 93017

== ENCOUNTER 2021-02-13 01:57 | Outpatient (CLI) | payer MEDICARE, MEDICAID, SELFPAY ==
--- NOTE | 2021-02-13 08:00 | DI.MRI_ITS ---
Exam(s) MR LUMBAR SPINE WO EXAM: MR LUMBAR SPINE WO CLINICAL HISTORY: Chronic LOW BACK PAIN, M54.5. TECHNIQUE: Multiplanar multisequence MRI of the Lumbar spine was performed. COMPARISON: MR MRI - LUMBAR SPINE WO CONTRAST from 01/17/2017 MR MRI - LUMBAR SPINE WO CONTRAST from 01/17/2017 . There are no plain films available time this MRI interpretation. FINDINGS: Five lumbar vertebrae are presumed Conus medullaris is at normal level. There is no evidence of conus mass nor subjacent clumping of in trathecal nerve roots to suggest arachnoiditis. The distal thecal sac appears unremarkable.There is no evidence of Tarlov intrasacral cysts nor other significant findings within the sacral canal Bones:There are no fractures nor ominous osseous lesions in the lumbar vertebral bodies and visualize d sacrum. With respect to the individual levels... T12-L1: Unremarkable L1-2: Normal disc height and signal. No disc herniation nor central canal stenosis.No foraminal steno sis L2-3: Preserved disc height. There is mild symmetrical annular bulging without a dominant disc herni ation. Central canal dimensions are lower normal. No significant foraminal stenosis. No facet arth ropathy. L3-4: Normal disc height and signal. Mild annular bulging. No prominent disc herniation. Central c anal dimensions normal. No foraminal stenosis. No significant facet arthropathy. L4-5: Relatively preserved disc height and signal. The previously present prominent right sided disc herniation is no longer seen. There is relatively symmetrical annular bulging at this level evident with mild central canal stenosis. There is mild bilateral foraminal stenosis at this level. Some d egenerative change in the facet joints. L5-S1: Preserved disc height. Mild annular bulging but without a prominent disc herniation. No linda tral canal stenosis. No foraminal stenosis on the right side. Mild foraminal stenosis on the left s serafin, this related to asymmetric degenerative change in the left facet joint. Right facet joint appea rs unremarkable. No significant ligamentum flavum hypertrophy. Soft tissues: paraspinal soft tissues appear unremarkable. IMPRESSION: 1. Compared to the prior MRI scan of December 2016, the size of the right paracentral disc herniation a t L4-5 has significantly decreased. At this level on the present study there is mild symmetrical maral ular bulging without prominent spinal canal stenosis. There is mild central canal stenosis at this l evel. No foraminal stenosis at this level. 2. Mild Modic type 2 sub endplate marrow changes at L4-5 level are unchanged from 2017. DATA REPOSITORY:
== END 2021-02-13 02:17 ==
PROVIDERS: Visit Provider Nurse Practitioner Family
DX: M54.5 Low back pain (principal); M47.816 Spondylosis without myelopathy or radiculopathy, lumbar region
CPT/HCPCS: 72148

== ENCOUNTER 2021-03-02 01:45 | Outpatient (CLI) | payer MEDICARE, MEDICAID, SELFPAY ==
--- NOTE | 2021-03-02 | DI.RAD_ITS ---
Exam(s) XR KNEE RT 3V AP,LAT,EVELINE EXAM: XR KNEE RT 3V AP,LAT,EVELINE CLINICAL HISTORY: s/p fall 2weeks ago continued pain anteriorly, rt knee pain, M25.561 TECHNIQUE: COMPARISON: No exams were available for comparison FINDINGS: Three views were obtained. There appears to be soft tissue swelling over the patella. No underlying bony abnormality seen. No gross knee joint effusion. No evidence of fracture. IMPRESSION: RADIATION DOSE DELIVERED: Total DLP
== END 2021-03-02 02:05 ==
PROVIDERS: Visit Provider Family Medicine
DX: M25.561 Pain in right knee (principal); M79.89 Other specified soft tissue disorders
CPT/HCPCS: 73562

== ENCOUNTER 2021-03-17 00:46 | Outpatient (CLI) | payer MEDICARE, MEDICAID, SELFPAY ==
[2021-03-17] MEDS: Omnipaque 350 MG/ML 100 ML BTL IJ (09:35)
[2021-03-17] MEDS: Normal Saline Flush 10 ML SYR IVP (09:36)
[2021-03-17] MEDS: Normal Saline - Diluent 50 ML VIAL IV (09:36)
--- NOTE | 2021-03-17 09:45 | DI.CT_ITS ---
Exam(s) CT ABDOMEN PELVIS W EXAM: CT ABDOMEN PELVIS W CLINICAL HISTORY: F/U INCIDENTAL 18 MM RT ADRENAL NODULE TECHNIQUE: COMPARISON: CT CT ABDOMEN PELVIS W from 02/01/2020 FINDINGS: CT examination of the abdomen and pelvis was performed prior to and following bolus infusion 100 cc o f Omnipaque 350. The previously noted right adrenal nodule seen on prior CT of January 2020 is again seen and is ess entially unchanged in size since the prior examination. This measures about 18-20 millimeters in gre atest diameter. The noncontrast examination today shows mean attenuation of the lesion to be about - 8 Hounsfield units, findings are consistent with adrenal adenoma. The previously described 10 millimeter left adrenal nodule also shows negative Hounsfield units atten uation and consistent with adrenal adenoma. The liver spleen and pancreas appear normal. Gallbladder and bile ducts are. There is no hydronephr osis or nephrolithiasis. Urinary bladder appears intact. Appendix is normal. No evidence of diverticulitis or bowel obstruction. Abdominal aorta and major visceral branches appear intact.. No evidence of abdominal or pelvic adenopathy. IMPRESSION: Bilateral adrenal nodules have appearance consistent with adrenal adenoma and are stable since the pr ior examination. No further follow-up recommended. RADIATION DOSE DELIVERED: 2,963.99mGy.cm Total DLP 19.39mGy CTDIvol RADIATION OPTIMIZATION: All CT scans at this facility use at least one of these dose optimization te chniques: automated exposure control; mA and/or kV adjustment per patient size (includes targeted exa ms where dose is matched to clinical indication); or iterative reconstruction.
== END 2021-03-17 01:06 ==
DX: E27.8 Other specified disorders of adrenal gland (principal); D35.00 Benign neoplasm of unspecified adrenal gland
CPT/HCPCS: 74177; J3490

== ENCOUNTER 2021-05-16 14:42 | Outpatient (CLI) | payer OTHER, SELFPAY ==
--- NOTE | 2021-05-16 12:00 | DI.RAD_ITS ---
Exam(s) XR ELBOW RT COMPLETE EXAM: XR ELBOW RT COMPLETE CLINICAL HISTORY: Persistent pain / Dec ROM / No Numb/Ting M25.521 PAIN RT ELBOW TECHNIQUE: COMPARISON: No exams were available for comparison FINDINGS: Three views were obtained. There is no evidence of an elbow joint effusion or hemarthrosis. No bony or soft tissue abnormality seen. IMPRESSION: RADIATION DOSE DELIVERED: Total DLP
== END 2021-05-16 15:02 ==
PROVIDERS: Visit Provider Nurse Practitioner Family
DX: M25.521 Pain in right elbow (principal)
CPT/HCPCS: 73080

== ENCOUNTER 2021-10-11 09:20 | Outpatient (CLI) | payer MEDICARE, MEDICAID, SELFPAY ==
[2021-10-11 09:36] VITALS: BP 136/90; PULSE 73; RESP 20; TEMP 36.6; O2SAT 99
--- NOTE | 2021-10-11 10:07 | DI.RAD_ITS ---
Exam(s) XR PAIN CLINIC LUMBAR SP 2V EXAM: XR PAIN CLINIC LUMBAR SP 2V CLINICAL HISTORY: DX: Lumbar Spondylosis TECHNIQUE: 2D and realtime digital imaging was performed. CONTRAST MATERIAL: Refer to procedure report. COMPARISON: No exams were available for comparison FINDINGS: Fluoroscopy was provided for Dr. Daniel during the performance of a bilateral lumbar medial branch blo ck. Please refer to the procedure report for complete details. Ka,r=23.74 mGy IMPRESSION:
[2021-10-11 10:08] VITALS: BP 158/99; PULSE 80; RESP 19; O2SAT 97
--- NOTE | 2021-10-11 10:14 | PDOC.PAIN ---
Pain Clinic Procedure Note Procedure Note Procedure Note: Lumbar/Sacral Medial Branch Blocks Maximino Dale has been referred to the [facility] for lumbar/sacral medial branch blocks. COMMENTS: I previously evaluated him in the office. His pre-procedure pain VAS was 5/10. Dx: Lumbosacral spondylosis without myelopathy Patient was interviewed and the medical record reviewed. There were no medical, pharmacologic, radiographic or other structural contraindications to attempting fluoroscopically guided local anesthetic lumbar/sacral medial branch blocks. Risks and expected side effects as well as potential benefit of the procedure were reviewed and voiced concerns addressed. The printed consent form was signed and witnessed. Standard time-out procedure was performed. Patient was placed in the prone position on the fluoroscopy table and automated blood pressure cuff and pulse oximeter applied. The skin entry points for approaching the anatomic target points of the segmental medial branches of bilateral L3-L5DR were identified with anfluoroscopy and marked. Following thorough Chlorhexadine preparation of the skin and draping and 1% lidocaine infiltration of the skin entry points and subcutaneous tissues, a 22 gauge spinal needle was placed under fluoroscopic guidance down on to the target point for each respective segmental medial branch.Position was confirmed in A/P, oblique and lateral views with 0.25ml of omnipaque 240. At this point I injected 0.5ml of 0.5% Bupivacaine was injected at each medial branch. Vital signs were stable throughout the procedure and were as recorded in the docflowsheet by the nursing staff. Follow up plans and appointments were discussed and was instructed to keep careful note of how the usual pain was modified by these injections. Specifically was asked to keep a pain diary for the next 24 hours using a numeric pain scale of 0-10 and report these results at the follow-up visit. Post procedure instruction was given as documented in the nursing documentation and having met discharge criteria. Patient was discharged from the [facility]. Based on the medial branches blocked today, if the patient has adequate relief and we are able to proceed to radiofrequency ablation, the treatment should result in the denervation of the bilateral L4-L5 and L5-S1 FACET JOINTS. We would expect to denervate a total of 4 facets during the radiofrequency ablation. COMMENTS: Post-procedure pain VAS was 2/10. He blood pressure was elevated during the procedure, but he remained asymptomatic in terms of headache, chest pain, and dizziness. Mart Daniel DO, MPH [facility]-Pain Management [facility] CC: Helen Deleon APRN
[2021-10-11] MEDS: Bupivacaine 0.5% Pres-Free 10 ML VIAL IJ (10:32)
[2021-10-11] MEDS: Omnipaque 240 MG/ML 50 ML BTL IJ (10:33)
== END 2021-10-11 09:21 | disposition home or self-care (01) ==
LOC: PC 09:21
PROVIDERS: Visit Provider Preventive Medicine Occupational Medicine
DX: M47.817 Spondylosis without myelopathy or radiculopathy, lumbosacral region (principal); M54.50 Low back pain, unspecified
CPT/HCPCS: 64493; 64494; 72100; Q9967

== ENCOUNTER 2021-10-26 02:30 | Outpatient (CLI) | payer MEDICARE, MEDICAID, SELFPAY ==
[2021-10-26 12:06] LABS: Hemoglobin A1C 5.4 % (<5.7)
[2021-10-26 12:34] LABS: Calculated LDL 94 mg/dL (<100); Cholesterol 186 mg/dL (<200); HDL Cholesterol 46 mg/dL (40-60); Triglyceride 231 mg/dL (<150)
== END 2021-10-26 02:31 | disposition home or self-care (01) ==
LOC: LBO 02:30
PROVIDERS: Visit Provider Nurse Practitioner Family
DX: Z13.1 Encounter for screening for diabetes mellitus (principal); N52.9 Male erectile dysfunction, unspecified; E66.3 Overweight
CPT/HCPCS: 36415; 64493; 64494; 72100; 80061; 83036

== ENCOUNTER 2021-10-26 09:59 | Outpatient (CLI) | payer MEDICARE, MEDICAID, SELFPAY ==
--- NOTE | 2021-10-26 06:00 | DI.RAD_ITS ---
Exam(s) XR PAIN CLINIC LUMBAR SP 2V EXAM: XR PAIN CLINIC LUMBAR SP 2V CLINICAL HISTORY: DX: lumbar spondylosis TECHNIQUE: 2D and realtime digital imaging was performed. Radiologist not present. CONTRAST MATERIAL: None. COMPARISON: No exams were available for comparison FINDINGS: Fluoroscopy was provided for pain management therapy. Please refer to procedure report or details. Cumulative dose: Ka,r=23.37 mGy IMPRESSION: RADIATION DOSE DELIVERED:
[2021-10-26 10:06] VITALS: BP 142/95; PULSE 91; RESP 20; TEMP 36.6; O2SAT 96
--- NOTE | 2021-10-26 10:39 | PDOC.PAIN_ITS ---
Pain Clinic Procedure Note Procedure Note Procedure Note: Lumbar/Sacral Medial Branch Blocks Maximino Dale has been referred to the [facility] for lumbar/sacral medial branch blocks. COMMENTS: He did excellent with his first LMBB on 10/11/21. His pain VAS pre- procedurally was 4/10. Patient was interviewed and the medical record reviewed. There were no medical, pharmacologic, radiographic or other structural contraindications to attempting fluoroscopically guided local anesthetic lumbar/sacral medial branch blocks. Risks and expected side effects as well as potential benefit of the procedure were reviewed and voiced concerns addressed. The printed consent form was signed and witnessed. Standard time-out procedure was performed. Patient was placed in the prone position on the fluoroscopy table and automated blood pressure cuff and pulse oximeter applied. The skin entry points for approaching the anatomic target points of the segmental medial branches of bilateral L3-L5 were identified with anfluoroscopy and marked. Following thorough Chlorhexadine preparation of the skin and draping and 1% lidocaine infiltration of the skin entry points and subcutaneous tissues, a 22 gauge spinal needle was placed under fluoroscopic guidance down on to the target point for each respective segmental medial branch.Position was confirmed in A/P, oblique and lateral views with 0.25ml of omnipaque 240. At this point 0.5ml of 2% Lidocaine was injected at each segmental sensory nerve. Vital signs were stable throughout the procedure and were as recorded in the docflowsheet by the nursing staff. Follow up plans and appointments were discussed and was instructed to keep careful note of how the usual pain was modified by these injections. Specifically was asked to keep a pain diary for the next 24 hours using a numeric pain scale of 0-10 and report these results at the follow-up visit. Post procedure instruction was given as documented in the nursing documentation and having met discharge criteria. [facility] Based on the medial branches blocked today, if the patient has adequate relief and we are able to proceed to radiofrequency ablation, the treatment should result in the denervation of the bilateral L4-L5 and L5-S1 FACET JOINTS. We would expect to denervate a total of 4 facets during the radiofrequency ablation. COMMENTS: Post-procedure pain VAS was 3/10. Mart Daniel DO, MPH [facility]-Pain Management [facility] for [facility] CC: Helen Deleon APRN
[2021-10-26] MEDS: Lidocaine 2% Pres-Free 2 ML VIAL IJ (10:52)
[2021-10-26 10:53] VITALS: BP 175/100; PULSE 68; RESP 22; O2SAT 97
== END 2021-10-26 10:00 | disposition home or self-care (01) ==
LOC: PC 10:00
PROVIDERS: Visit Provider Preventive Medicine Occupational Medicine
DX: M47.817 Spondylosis without myelopathy or radiculopathy, lumbosacral region (principal); M54.50 Low back pain, unspecified
CPT/HCPCS: 64493; 64494; 72100

== ENCOUNTER 2021-11-29 07:56 | Outpatient (CLI) | payer MEDICARE, MEDICAID, SELFPAY ==
--- NOTE | 2021-11-29 06:00 | DI.RAD_ITS ---
Exam(s) XR PAIN CLINIC LUMBAR SP 2V EXAM: XR PAIN CLINIC LUMBAR SP 2V CLINICAL HISTORY: Dx: Lumbar Spondylosis TECHNIQUE: 2D and realtime digital imaging was performed. Radiologist not present. CONTRAST MATERIAL: None. COMPARISON: No exams were available for comparison FINDINGS: Fluoroscopy was provided for pain management therapy. Please refer to procedure report or details. Cumulative dose: Ka,r=31.33 mGy IMPRESSION: RADIATION DOSE DELIVERED:
[2021-11-29 08:06] VITALS: BP 127/86; PULSE 55; RESP 20; TEMP 36.6; O2SAT 100
[2021-11-29] MEDS: fentaNYL 100 MCG/2 ML VIAL IVP ×3 (08:36→08:53)
[2021-11-29] MEDS: Midazolam 2 MG/2 ML VIAL IVP (08:37)
[2021-11-29] MEDS: Lactated Ringers 500 ML 80 ML IV (09:08)
[2021-11-29 09:13] VITALS: BP 152/87; PULSE 60; RESP 20; O2SAT 9
--- NOTE | 2021-11-29 09:27 | PDOC.PAIN_ITS ---
Pain Clinic Procedure Note Procedure Note Procedure Note: Bilateral Lumbar Radiofrequency with Coolief Machine PROCEDURE NOTE Date of Service: November 29, 2021 Patient: Maximino Dale Provider: Mart Daniel DO, MPH Pre Operative Diagnosis: Lumbosacral Spondylosis without Myelopathy Post Operative Diagnosis: Same Pre procedure pain; VAS= 7/10 PROCEDURE: Radiofrequency Ablation of medial branches - Bilateral L3 L4 L5 and lateral branches of bilateral S1. Maximino Dale was brought into the fluoroscopy suite and positioned into the prone position on the fluoroscopy table and allowed to adjust to a position of comfort. A grounding pad was placed on the right thigh. The lumbar region was widely prepped with a chloraprep solution, allowed to air dry and draped in standard sterile surgical fashion. Local anesthesia was provided by 4 mL of 2% Lidocaine delivered with a 25g needle. A 17g 100 mm radiofrequency introducer needle was placed to the planned anatomic targets guided with intermittent fluoroscopy with a perpendicular approach to terminally place at the junction of the superior articular process and the transverse process of the bilateral L4 L5, the base of the sacral ala on the bilateral for the L5 medial branch nerve and the area between base of the sacral ala to the S1 foramen bilaterally. The stylets were removed and radiofrequency probes with a 4mm active tip were then inserted. Needle tip position of the probes was verified in the AP, oblique, and lateral views. At each site, the medial branch nerve was stimulated at 2 Hz to a maximum 1-2 volts determined to finalize safe needle and electrode placement. The patient was awake and responsive during this portion of the procedure. Each target was anesthetized with 1-2 mL of 2% Lidocaine for anesthesia for lesioning and then each target was lesioned at 80 degrees Celsius for 2 minutes and 30 seconds. Tissue impeden sally were noted to be between 250 and 500 Ohms. Electrodes and needles were then removed and bandages placed over the needle placement sites, the patient then returned to the supine position on a stretcher and transported to the recovery room without hemodynamic, neurologic, or allergic reactions. Fluoroscopic images were printed for hard copy recording and digitally archived. POST PROCEDURE EVALUATION: IMPRESSION: 1. Summary of procedure. Medication given is documented in the MAR. 2. The patient will be contacted in 1-3 weeks 3. Estimated Blood Loss: <5 mls 4. Fluoroscopy time: Documented in the EMR. Follow up plans and appointments were discussed with the Maximino . Post procedure instruction was given as documented in nursing documentation and having met discharge criteria, Maximino was discharged from the Pain Management Center. COMMENTS: No apparent complications. Post-procedure pain: VAS= 3/10. F/U with our office as needed. I personally performed this entire procedure. Mart Daniel DO, MPH Attending Physician Pain Management
[2021-11-29] MEDS: Lidocaine 2% Multi-Dose 20 ML VIAL IJ (09:32)
[2021-11-29] MEDS: methylPREDNISolone ACETATE 40 MG/ML VIAL IJ (09:32)
[2021-11-29] MEDS: Bupivacaine 0.5% Pres-Free 30 ML VIAL IJ (09:33)
== END 2021-11-29 07:57 | disposition home or self-care (01) ==
LOC: PC 07:57
PROVIDERS: Visit Provider Preventive Medicine Occupational Medicine
DX: M47.817 Spondylosis without myelopathy or radiculopathy, lumbosacral region (principal); M54.50 Low back pain, unspecified
CPT/HCPCS: 64635; 64636; 72100; J1030; J2250; J3010; J3490

== ENCOUNTER 2022-06-05 12:00 | Outpatient (CLI) | payer MEDICARE, MEDICAID, SELFPAY ==
[2022-06-05] MEDS: Albuterol HFA 18 GM 200 PUFF INH IH (15:15)
[2022-06-05] MEDS: Inhaler, Assist Device 1 EACH MC (15:15)
--- NOTE | 2022-06-06 09:06 | PFT_ITS ---
Date of service: 06/05/22 Time of Service: 13:25 Pulmonary Function Test Result Requesting Provider Madina Kaur Indications: Orthopnea, nocturnal cough Interpretation Spirometry: There is no airflow limitation. There is no significant bronchodilator response. The FVC is low. Impression No airflow obstruction. The low FVC may represent pseudo-restriction from an elevated BMI, however cannot rule out restrictive lung disease (ILD or neuromuscular weakness). Consider full PFT testing with lung volumes to invest igate further is clinically appropriate. Clinical Correlation therefore is recommended.
== END 2022-06-05 12:01 | disposition home or self-care (01) ==
PROVIDERS: PCP Nurse Practitioner Family; Visit Provider Nurse Practitioner Family
DX: R94.2 Abnormal results of pulmonary function studies (principal); R06.01 Orthopnea; R05.8 Other specified cough; F17.210 Nicotine dependence, cigarettes, uncomplicated; Z77.090 Contact with and (suspected) exposure to asbestos
CPT/HCPCS: 94060

== ENCOUNTER 2022-06-19 01:31 | Outpatient (CLI) | payer MEDICARE, MEDICAID, SELFPAY ==
--- NOTE | 2022-06-19 06:45 | DI.CT_ITS ---
Exam(s) CT ABDOMEN WO/W EXAM: CT ABDOMEN WO/W CLINICAL HISTORY: f/u adrenal nodule,e27.8 TECHNIQUE: Imaging Protocol: Axial computed tomography images with coronal and sagittal reformatted images were created and reviewed CONTRAST MATERIAL: Intravenous: Omnipaque 350 contrast volume:100 mL Oral: No COMPARISON: CT CT ABDOMEN PELVIS W from 03/17/2021 FINDINGS: ABDOMEN: Lung Bases: Normal where visualized. Liver: Normal density. No measurable mass. Portal, Superior Mesenteric, and Splenic Veins: Unremarkable. Gallbladder and Biliary Tract: No radiodense calculus or dilation. Pancreas: Normal density, no abnormal calcifications or inflammatory process. Spleen: Normal. Adrenals: There again seen hypodense nodules on each of the adrenal glands. The right adrenal gland nodule measures 1.8 cm. The left adrenal gland nodule measures 1 cm. The a show no significant buckner ge in size. They show negative Hounsfield units on the noncontrast examination. Findings are again consistent with adrenal adenomas. No follow-up is recommended. Kidneys: Normal size, contour and axis. No radiodense stones or obstructive uropathy. No masses seen. Abdominal Aorta: Abdominal portion non-dilated. Mild atherosclerosis. Bowel: No obstruction or bowel wall thickening. Appendix is unremarkable. Peritoneal Cavity: No ascites, collection or mesenteric inflammatory response. No free air. Lymph Nodes: Within normal limits. Bones: Unremarkable. Soft Tissues: There is a small fat containing umbilical hernia. IMPRESSION: Stable bilateral adrenal nodules consistent with adrenal adenomas. No follow-up is recommended. RADIATION DOSE DELIVERED: 2,669.94mGy.cm Total DLP DATA REPOSITORY: All CT scans at this facility are submitted to the National Radiology Data Registry (NRDR) Dose Index Registry (DIR) with the [employer] ([employer]). RADIATION OPTIMIZATION: All CT scans at this facility use at least one of these dose optimization te chniques: automated exposure control; mA and/or kV adjustment per patient size (includes targeted exa ms where dose is matched to clinical indication); or iterative reconstruction.
[2022-06-19] MEDS: Omnipaque 350 MG/ML 100 ML BTL IJ (09:34)
[2022-06-19] MEDS: Normal Saline - Diluent 50 ML VIAL IJ (09:34)
[2022-06-19] MEDS: Normal Saline Flush 10 ML SYR IVP (09:35)
== END 2022-06-19 01:51 ==
LOC: DI 01:31
PROVIDERS: PCP Nurse Practitioner Family; Visit Provider Nurse Practitioner Family
DX: E27.8 Other specified disorders of adrenal gland (principal); D35.01 Benign neoplasm of right adrenal gland; D35.02 Benign neoplasm of left adrenal gland; K42.9 Umbilical hernia without obstruction or gangrene
CPT/HCPCS: 74170; J3490

== ENCOUNTER 2022-07-02 08:18 | Outpatient (CLI) | payer MEDICARE, MEDICAID, SELFPAY ==
--- NOTE | 2022-07-02 08:15 | RT.EKG_ITS ---
APPROVED REPORT Exam: Resting ECG Reason for Exam: Hypertension Patient Location: O HR:58 bpm ECG Measurements Heart Rate 58 AXIS AK 193 P -9 QRSd 109 QRS 46 QT 428 T 44 QTc 421 Conclusion Sinus rhythm...normal P axis, V-rate 50- 99 Normal Electrocardiogram
== END 2022-07-02 08:19 | disposition home or self-care (01) ==
LOC: DI.CM 08:19
PROVIDERS: PCP Nurse Practitioner Family; Visit Provider Nurse Practitioner Family
DX: I10 Essential (primary) hypertension (principal)
CPT/HCPCS: 93010

== ENCOUNTER 2022-07-05 00:03 | Outpatient (CLI) | payer MEDICARE, MEDICAID, SELFPAY ==
--- NOTE | 2022-07-05 07:00 | DI.NM_ITS ---
APPROVED REPORT Exam: Pharmacologic Patient Location: Out-Patient Room/Bed: Stress Nurse: Nereida Romo RN Ordering Provider:DAPHNIE GREEN, Contact Number: [phone] BMI: 30.61 Baseline Rhythm: Sinus Bradycardia Indications: chest pain Medical History Medical History: HTn, Smoker, Depression, Vit D Deficiency Cardiac Medications: Losartan, ASA, Chlorthalidone Allergies: Lisinopril Cardiac Risk Factors: Family Hx, HTN, Smoker Previous Cardiac Procedures: None Pretest Chest Pain Characteristics: None Exercise History: Sedentary Physical Disabilities: None Lung Sounds: Clear to auscultation Heart Sounds: Regular Stress Test Details Test: Exercise stress converted to pharmacologic stress due to failure to obtain a diagnostic stress test. Nuclear Acquisition: Rest Tc-99m/Stress Tc-99m 1 day Rest Isotope: Tc-99m Sestamibi. Dose: 12.2 Date: 07/05/2022 Injection Time: 0845 Stress Isotope: Tc-99m Sestamibi. Dose: 34 Date: 07/05/2022 Injection Time: 1010 HR Resting HR Supine: 56 bpm Max Heart Rate (APMHR): 173.525644 bpm Resting HR Standin bpm Target HR (85% APMHR): 147.543225 bpm Max HR Achieved: 133 bpm % of APMHR: 76.88 Recovery HR: 90 bpm HR response to stress: Normal HR response to stress BP Resting BP Supine: 130/92 mmHg Resting BP Standin/92 mmHg Max BP: 160/102 mmHg Recovery BP: 130/82 mmHg BP response to stress: Normal blood pressure response to stress. ECG Resting ECG: Sinus Bradycardia Ectopy: none Stress ECG: Sinus Rhythm, Sinus Tachycardia ST Change: No significant ST segment changes noted Arrhythmia: None Recovery ECG: Sinus Rhythm Recovery ST Change: No significant ST segment changes noted Recovery Arrhythmia: None Clinical Reason for Termination: Dizziness, Fatigue, Dyspnea Stress Symptoms: Dyspnea, Headache, General Fatigue, Dizziness Exercise duration: 14 min00 sec Highest Stage Reached: Stage 3: 3.4 mph at 14% grade. Exercise capacity: 8.15 METs Angina Score: Exercise-Limiting Hood Treadmill Score: 5.4 Rate Pressure Product: 13903 Stress ECG Conclusion 1. Resting electrocardiogram was within normal limits 2. Patient underwent testing using a combination of exercise and pharmacologic stress with regadenoso n. 3. Peak heart rate achieved was 77% of predicted for age 4. The electrocardiographic portion of the test was nondiagnostic due to inadequate heart rate 5. There were no dysrhythmias 6. See MPI report Hood Treadmill Score is 5.4 which is Low risk. Stress Test Summary STAGE Time (mins) Speed (mph) Grade (%) HR BP SpO2 SYMPTOMS METS Supine 56 130/92 Standing 71 128/92 1 3 1.7 10 103 140/102 95 4.5 2 6 2.5 12 126 150/102 98 MCDOWELL, SOB, Dizzy 7 3 9 3.4 14 128 160/95316 94 tread stopped around 0710 10 4 12 4.2 16 94 172/92 94 15 1 min post Lexiscan injection 103 130/82 98 metallic taste, MCDOWELL 3 min post Lexiscan injection 96 130/78 97 metallic taste better 6 min post Lexiscan injection 90 130/82 97 MCDOWELL lingering Patient trialed exercise stress test using García protocol. At about 07:10 exercise treadmill was stop ped due to extreme fatigue, MCDOWELL, dizziness, and SOB. Let patient recover. Myriam given at 10:40. Patient had metallic taste and MCDOWELL in response to myriam. MPI Conclusion Myocardial perfusion is normal. There is no ischemia or evidence of prior infarction EF 49%, normal wall motion Radiologist Interpretation Radiologist agrees with Traffic Warehouse Supervisor's Interpretation. Radiologist Interpretation by: Mohit Real MD Interpretation Date/Time: 07/05/2022 13:54:03
[2022-07-05] MEDS: Regadenoson 0.4 MG/5 ML SYR IVP (10:32)
== END 2022-07-05 00:23 ==
LOC: DI 00:03
PROVIDERS: PCP Nurse Practitioner Family; Visit Provider Nurse Practitioner Family
DX: R07.9 Chest pain, unspecified (principal)
CPT/HCPCS: 78452; 93016; 93018; 93017; J2785

== ENCOUNTER 2022-07-11 10:55 | Emergency (ER) | payer MEDICARE, MEDICAID, SELFPAY ==
[2022-07-11] VITALS (19 sets, daily range): BP systolic 101–140; BP diastolic 64–92; PULSE 66–96; RESP 7–20; TEMP 36.9; O2SAT 92–99
--- NOTE | 2022-07-11 10:45 | RT.EKG_ITS ---
APPROVED REPORT Exam: Resting ECG Reason for Exam: chest pain Patient Location: E HR:89 bpm ECG Measurements Heart Rate 89 AXIS MS 194 P 51 QRSd 97 QRS 23 QT 370 T 65 QTc 450 Conclusion Sinus rhythm...normal P axis, V-rate 60- 99 Consider inferior infarct...Q >35mS in II III aVF Nonspecific T abnormalities, lateral leads...T <-0.10mV, I aVL V5 V6
[2022-07-11 11:25] LABS: Abs Immature Grans 0.02 10^3/uL (0.0-0.06); Absolute Eosinophil Count 0.21 10^3/uL (0.0-0.7); Absolute Lymphocyte Count 3.78 10^3/uL (1.2-3.4); Absolute Monocyte Count 0.86 10^3/uL (0.1-0.8); Absolute Neutrophil Count 5.14 10^3/uL (1.2-6.7); Eosinophils % 2.1; HCT 43.1 % (40.0-50.0); HGB 15.3 g/dL (13.5-17.5); Immature Grans % 0.2; Lymphocytes % 37.4; MCH 31.2 pg (27.0-33.0); MCHC 35.5 % (32.0-36.0); MCV 88 fL (80-95); MPV 10.9 fL (8.0-11.0); Monocytes % 8.5; Neutrophils % 50.8; Platelet Count 358 10^3/uL (130-400); RDW 12.6 % (11.8-14.1); WBC 10.11 10^3/uL (4.4-10.8)
--- NOTE | 2022-07-11 11:30 | DI.CT_ITS ---
Exam(s) CT HEAD WO EXAM: CT HEAD WO CLINICAL HISTORY: vertigo. TECHNIQUE: Imaging Protocol: Axial computed tomography images with coronal and sagittal reformatted images were created and reviewed COMPARISON: No exams were available for comparison FINDINGS: Ventricles and Extra axial spaces: Normal in size and morphology for the patient's age. Hemorrhage: None. Cerebral parenchyma: Normal. Midline shift: None. Brainstem/Cerebellum: Normal. Calvarium: Normal. Visualized Paranasal sinuses/Mastoids: Clear. Soft Tissues: Unremarkable. IMPRESSION: 1. No acute intracranial process. 2. Findings were discussed with the emergency department at 12:20 p.m. on 07/11/2022. RADIATION DOSE DELIVERED: 801.11mGy.cm Total DLP DATA REPOSITORY: All CT scans at this facility are submitted to the National Radiology Data Registry (NRDR) Dose Index Registry (DIR) with the [employer] (A[employer]). RADIATION OPTIMIZATION: All CT scans at this facility use at least one of these dose optimization te chniques: automated exposure control; mA and/or kV adjustment per patient size (includes targeted exa ms where dose is matched to clinical indication); or iterative reconstruction.
--- NOTE | 2022-07-11 11:31 | W.ED.GENAD ---
Discharge Plan Disposition Patient Disposition: Home Condition: Stable Discharge Details Clinical Impression: Vertigo, Chest pain Primary Care Provider: Josie Kaur ED Provider: Zeeshan Del Real Home Meds and New Rx's Prescriptions: New meclizine [Antivert] 25 mg tablet,chewable 25 mg PO BID PRN (Reason: dizziness) Qty: 20 0RF Continued aspirin [Adult Aspirin Regimen] 81 mg tablet,delayed release (DR/EC) 81 mg PO DAILY ibuprofen 800 mg tablet 800 mg PO Q6H PRN (Reason: pain) Qty: 90 0RF Rx Instructions: Take routinely x 7 days, then take as needed acetaminophen [Tylenol Extra Strength] 500 mg tablet 1,000 mg PO BID & HS Qty: 90 0RF Rx Instructions: Take routinely x 7 days then as needed baclofen 10 mg tablet 10 mg PO BID MDD 20mg PRN (Reason: sciatica) Qty: 20 0RF Rx Instructions: Take 10mg (1 tab) up to 2x per day by at least 8 hours. chlorthalidone 25 mg tablet 25 mg PO DAILY Qty: 90 3RF losartan 50 mg tablet 75 mg PO DAILY 90 Days Qty: 135 3RF Discharge Instructions Instructions: Chest Pain (ED), Vertigo (ED) Additional Instructions: Take prescribed medication should you have vertigo in the future. Please rest at home with no exertional activities over the next 2 days. Please contact your primary care physician to arrange follow-up. Return to the ER immediately for any worsening or new concerning symptoms. Stand Alone Forms: Work Release Referrals: Josie Kaur NP [Primary Care Provider] - Discharge Data Discharge Date/Time-TO BE ENTERED AT DEPARTURE: 07/11/22 15:10 Medical Decision Making 1132??47-year-old male with history of hypertension, questionable CVA in the past per the patient, here after episode of dizziness that seemed vertiginous with associated severe anxiety, rapid breathing and mid chest discomfort. Patient was given aspirin and nitroglycerin by EMS. Pain now completely resolved. Patient notes he continues to have some mild dizziness. Concern for benign vertigo with anxiety reaction versus consider central etiology including CVA, versus less likely cardiogenic etiology, consider ACS versus arrhythmia, versus PE - low risk. EKG was reviewed and interpreted by me: Please see report, sinus rhythm 89 bpm, normal axis, no STEMI. I reviewed past medical record. Recent cardiac stress test 07/05/22 as interpreted by cardiaology: MPI Conclusion Myocardial perfusion is normal.? There is no ischemia or evidence of prior infarction EF 49%, normal wall motion -- CT head interpreted by radiology: 1. No acute intracranial process.? 2. Findings were discussed with the emergency department at 12:20 p.m. on 07/11/2022. -- Labs reviewed and nondiagnostic. Initial troponin and delta troponin negative. Patient had no arrhythmia on continuous ecg monitoring. Ddimer negative. -- Patient reassessed and symptoms completely resolved. Plan for discharge with outpatient followup. Disposition decision was made weighing the risks and benefits of hospitalization versus outpatient treatment, the risk for further decompensation, and the patient's wishes. The patient was stable and requested discharge. Prior to discharge, my usual and customary return precautions were reviewed with the patient - this included follow-up instructions and reason to return to the emergency department if condition worsens, does not improve as expected, or other new concerns arise. Medical Records Medical records reviewed: Yes I reviewed the patient's medical records. Lab Data Lab results reviewed: Yes I reviewed the patient's lab results. Labs: Laboratory Tests Range/Units 07/11/22 07/11/22 07/11/22 11:10 11:10 11:10 WBC (4.4-10.8) 10^3/uL 10.11 RBC (4.36-5.78) 10^6/uL 4.90 Hgb (13.5-17.5) g/dL 15.3 Hct (40.0-50.0) % 43.1 MCV (80-95) fL 88 MCH (27.0-33.0) pg 31.2 MCHC (32.0-36.0) % 35.5 RDW (11.8-14.1) % 12.6 Plt Count (130-400) 10^3/uL 358 MPV (8.0-11.0) fL 10.9 Immature Gran % 0.2 Neutrophils % 50.8 Lymphocytes % 37.4 Monocytes % 8.5 Eosinophils % 2.1 Basophils % 1.0 Nucleated RBC % (0.0-0.3) % 0.0 Absolute Neutrophils (1.2-6.7) 10^3/uL 5.14 Absolute Lymphocytes (1.2-3.4) 10^3/uL 3.78 H Absolute Monocytes (0.1-0.8) 10^3/uL 0.86 H Absolute Eosinophils (0.0-0.7) 10^3/uL 0.21 Absolute Basophils (0.0-0.2) 10^3/uL 0.10 D-Dimer (<500) ng/mlFEU 320 Sodium (136-145) mmol/L 140 Potassium (3.5-5.1) mmol/L 3.6 Chloride (98-107) mmol/L 103 Carbon Dioxide (21.0-32.0) mmol/L 24.4 Anion Gap (3-11) mmol/L 12.6 H BUN (7-18) mg/dL 21 H Creatinine (0.70-1.30) mg/dL 1.5 H Est GFR (CKD-EPI 2020) (mL/min/1.73m2) 57.43 Glucose (74-106) mg/dL 107 H Calcium (8.5-10.1) mg/dL 10.0 Magnesium (1.8-2.4) mg/dL 1.9 Total Bilirubin (0.2-1.0) mg/dL 0.8 AST (15-37) U/L 25 ALT (16-63) U/L 48 Alkaline Phosphatase (46-116) U/L 113 Troponin I (<or=60) ng/L < 50 Total Protein (6.4-8.2) g/dL 7.2 Albumin (3.4-5.0) g/dL 4.2 Range/Units 07/11/22 14:03 WBC (4.4-10.8) 10^3/uL RBC (4.36-5.78) 10^6/uL Hgb (13.5-17.5) g/dL Hct (40.0-50.0) % MCV (80-95) fL MCH (27.0-33.0) pg MCHC (32.0-36.0) % RDW (11.8-14.1) % Plt Count (130-400) 10^3/uL MPV (8.0-11.0) fL Immature Gran % Neutrophils % Lymphocytes % Monocytes % Eosinophils % Basophils % Nucleated RBC % (0.0-0.3) % Absolute Neutrophils (1.2-6.7) 10^3/uL Absolute Lymphocytes (1.2-3.4) 10^3/uL Absolute Monocytes (0.1-0.8) 10^3/uL Absolute Eosinophils (0.0-0.7) 10^3/uL Absolute Basophils (0.0-0.2) 10^3/uL D-Dimer (<500) ng/mlFEU Sodium (136-145) mmol/L Potassium (3.5-5.1) mmol/L Chloride (98-107) mmol/L Carbon Dioxide (21.0-32.0) mmol/L Anion Gap (3-11) mmol/L BUN (7-18) mg/dL Creatinine (0.70-1.30) mg/dL Est GFR (CKD-EPI 2020) (mL/min/1.73m2) Glucose (74-106) mg/dL Calcium (8.5-10.1) mg/dL Magnesium (1.8-2.4) mg/dL Total Bilirubin (0.2-1.0) mg/dL AST (15-37) U/L ALT (16-63) U/L Alkaline Phosphatase (46-116) U/L Troponin I (<or=60) ng/L < 50 Total Protein (6.4-8.2) g/dL Albumin (3.4-5.0) g/dL HPI General Mode of arrival: EMS. Date/Time Provider Initiated Documentation: 07/11/22 11:02. Limitations to Documentation: no limitations. Information obtained by: patient and EMS. HPI Narrative: 47-year-old male with history of hypertension, questionable CVA in the past per the patient, here after episode of dizziness that seemed vertiginous. 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 Dizziness worse with movement. No associated MCDOWELL. Dizziness has persisted but now improved. Patient notes associated severe anxiety, rapid breathing and mild chest discomfort. Discomfort described as tightness. Now resolved. Related Data Home Medications Medication Instructions Recorded Confirmed acetaminophen 500 mg tablet 1,000 mg PO BID & HS fever #90 tabs 06/16/21 07/11/22 (Tylenol Extra Strength) ibuprofen 800 mg tablet 800 mg PO Q6H PRN pain #90 tabs 01/28/22 02/22/23 aspirin 81 mg tablet,delayed 81 mg PO DAILY 07/25/21 07/11/22 release (Adult Aspirin Regimen) baclofen 10 mg tablet 10 mg PO BID PRN sciatica #20 tabs 06/04/22 07/11/22 chlorthalidone 25 mg tablet 25 mg PO DAILY #90 tabs 07/02/22 07/11/22 losartan 50 mg tablet 75 mg PO DAILY 90 days #135 tabs 07/02/22 07/11/22 meclizine 25 mg chewable tablet 25 mg PO BID PRN dizziness #20 tabs 07/11/22 (Antivert) Previous Rx's Medication Instructions Recorded acetaminophen 500 mg tablet 1,000 mg PO BID & HS fever #90 tabs 06/16/21 (Tylenol Extra Strength) ibuprofen 800 mg tablet 800 mg PO Q6H PRN pain #90 tabs 06/16/21 baclofen 10 mg tablet 10 mg PO BID PRN sciatica #20 tabs 06/04/22 chlorthalidone 25 mg tablet 25 mg PO DAILY #90 tabs 07/02/22 losartan 50 mg tablet 75 mg PO DAILY 90 days #135 tabs 07/02/22 meclizine 25 mg chewable tablet 25 mg PO BID PRN dizziness #20 tabs 07/11/22 (Antivert) Allergies Allergy/AdvReac Type Severity Reaction Status Date / Time lisinopril AdvReac Unknown Cough Verified 07/16/22 11:21 General Stated Complaint: [id number] CHRISTOPHER: 3 Review of Systems All systems reviewed & are unremarkable except as noted in HPI and below Constitutional Constitutional: Denies fever(s) Cardiovascular Cardiovascular: Reports as per HPI Respiratory Respiratory: Reports as per HPI PFSH All Active Problems Vertigo (Acute) Chest pain (Acute) Orthopnea (Acute) Lumbosacral spondylosis without myelopathy (Acute) Right lateral epicondylitis (Acute) Elbow pain, right (Acute) Increased body mass index (BMI) (Acute) Adrenal nodule (Acute) Right - 18mm by CT-most likely benign Rec. F/U 12 months LLQ abdominal pain (Acute) Abdominal pain (Acute) Impotence due to erectile dysfunction (Acute) Vitamin D deficiency (Acute) History of open reduction and internal fixation (ORIF) procedure (Acute 08/11/15) Depression (Chronic 02/18/17) Essential hypertension (Chronic) Lumbago (Chronic 12/24/12) Pressure sensation in left ear (Chronic 07/18/17) Smoking (Acute 09/04/17) Medical History Back pain Degenerative lumbar disc Hypertension Lumbar disc disease Surgical History Fracture, Open Treatment (07/28/15) ORIF-RIGHT DISTAL TIBIA; DR. REYES Family History Mother Diabetes Depression Stroke Hyperlipidemia Hypertension Father Heart disease Hyperlipidemia Hypertension Sister Substance abuse Alcohol abuse Depression Sister Essential hypertension Depression Sister Alcohol abuse Sister Substance abuse Alcohol abuse Depression Asthma Cancer Son Depression Son Depression Social History (Updated 06/05/22 @ 15:25 by Alicia Chamberlain) Smoking/Tobacco Use Status: Current every day Tobacco Type: cigarettes Tobacco: How many years used: 35 Quit status: considering quitting Second Hand Exposure: Yes Counseling given: counseling >3 minutes Smoking risk assessment performed?: Yes Alcohol Intake: current Alcohol Intake frequency: a few times a month Alcohol type: beer Drug use: Current Sobriety Substance use type: former substance user Counseling given: No Counseling provided: none Caregiver/Support person: No Household members: spouse and children Housing: apartment Do you need help understanding health information?: Rarely Pets and animals: Yes Pets and animals: cat(s) Sexually active: Yes Do you think of yourself as: straight/heterosexual Current gender identity: male What is your relationship status?: How often do you talk on the phone with friends or family?: three or more times per week How often do you get together with friends or relatives?: never How often do you attend catholic or orthodoxy services?: decline to answer Do you belong to any clubs or organized social groups?: no Panel score (0-1 are the most socially isolated patients): 2 What type of physical activity do you participate in: walking and running Duration: > 90 minutes/day Frequency: daily Karen/Pentecostal: No preference Special karen needs: No Agree to transfusion: No Seatbelt use: always Helmet use: No 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 Do you feel safe at home: Yes Do you feel safe in your relationship?: Yes Exam Const General: cooperative and no acute distress [facility] Mouth: moist mucous membranes Eyes Conjunctivae: normal conjunctivae Sclera: normal sclerae Neck Neck: trachea midline Resp Auscultation: clear to auscultation bilaterally, no rales, no rhonchi and no wheezes Cardio Rate: regular rate and not tachycardic Rhythm: regular rhythm Heart Sounds: S1 normal, S2 normal, no gallops, no murmurs and no rubs GI Palpation: soft, not firm, no guarding, no masses, not rigid and nontender Skin General skin exam: no rashes or lesions noted Neuro General: patient alert, patient awake, patient oriented x3 and tone normal Cognition: normal cognition Speech: speech normal Motor: strength 5/5 throughout Sensory Exam: no sensory deficits noted Coordination: [id number] test normal, [id number] test normal and Romberg test normal Other: HINTS negative Extrem General: no edema Psych Appearance: grossly normal Mental Status: mental status grossly normal Course Vital Signs Vital signs: Vital Signs Pulse 95 H 07/11/22 10:53 Respiratory Rate 20 07/11/22 10:53 Blood Pressure 108/72 07/11/22 10:53 Pulse Oximetry 99 07/11/22 10:53 Pulse 95 H 07/11/22 10:53 Respiratory Rate 20 07/11/22 11:00 Respiratory Effort Normal 07/11/22 11:06 Respiratory Depth Normal 07/11/22 11:00 Respiratory Pattern Normal 07/11/22 11:00 Blood Pressure 108/72 07/11/22 10:53 Blood Pressure Position Supine 07/11/22 10:53 Pulse Oximetry 99 07/11/22 10:53 Oxygen Delivery Method Room Air 07/11/22 10:53 Oxygen Flow Rate 0 07/11/22 10:53 Pain Level 1 07/11/22 10:53 Lab/Test Results Lab/Test Results: Laboratory Tests Range/Units 07/11/22 11:10 WBC (4.4-10.8) 10^3/uL 10.11 RBC (4.36-5.78) 10^6/uL 4.90 Hgb (13.5-17.5) g/dL 15.3 Hct (40.0-50.0) % 43.1 MCV (80-95) fL 88 MCH (27.0-33.0) pg 31.2 MCHC (32.0-36.0) % 35.5 RDW (11.8-14.1) % 12.6 Plt Count (130-400) 10^3/uL 358 MPV (8.0-11.0) fL 10.9 Immature Gran % 0.2 Neutrophils % 50.8 Lymphocytes % 37.4 Monocytes % 8.5 Eosinophils % 2.1 Basophils % 1.0 Nucleated RBC % (0.0-0.3) % 0.0 Absolute Neutrophils (1.2-6.7) 10^3/uL 5.14 Absolute Lymphocytes (1.2-3.4) 10^3/uL 3.78 H Absolute Monocytes (0.1-0.8) 10^3/uL 0.86 H Absolute Eosinophils (0.0-0.7) 10^3/uL 0.21 Absolute Basophils (0.0-0.2) 10^3/uL 0.10 PAWSS Have you Been Recently Intoxicated or Drunk Within the Last 30 days?: No Have you Ever Experienced Previous Episodes of Alcohol Withdrawal?: No Have you ever Experienced Withdrawal Seizures?: No Have you ever Experienced Delirium Tremens(DT)s?: No Have you ever undergone Alcohol Rehabilitation Treatment (i.e, inpt ot outpatient treatment programs)?: No Have you ever Experienced Blackouts?: No Have you ever Combined Alcohol with other Downers within the last 90 days?: No Have you ever Combined Alcohol with any other Substance of Abuse during the last 90 days?: No Result: 0
[2022-07-11 11:43] LABS: ALT 48 U/L (16-63); AST 25 U/L (15-37); Albumin 4.2 g/dL (3.4-5.0); Alkaline Phosphatase 113 U/L (46-116); Anion Gap 12.6 mmol/L (3-11); BUN 21 mg/dL (7-18); Bilirubin, Total 0.8 mg/dL (0.2-1.0); CO2 24.4 mmol/L (21.0-32.0); CREATININE 1.5 mg/dL (0.70-1.30); Chloride 103 mmol/L (98-107); Estimated GFR 57.43 (mL/min/1.73m2); Glucose 107 mg/dL (74-106); Magnesium 1.9 mg/dL (1.8-2.4); Potassium 3.6 mmol/L (3.5-5.1); Sodium 140 mmol/L (136-145); Total Protein 7.2 g/dL (6.4-8.2); Troponin I < 50 ng/L (<or=60)
[2022-07-11 13:39] LABS: D-Dimer 320 ng/mlFEU (<500)
[2022-07-11] MEDS: Lactated Ringers 1,000 ML 1000 ML IV (14:04)
[2022-07-11 14:25] LABS: Troponin I < 50 ng/L (<or=60)
== END 2022-07-11 15:10 | disposition home or self-care (01) ==
PROVIDERS: Emergency Provider Student in an Organized Health Care Education/Training Program; PCP Nurse Practitioner Family
DX: R42 Dizziness and giddiness (principal); R07.89 Other chest pain; F41.9 Anxiety disorder, unspecified; I10 Essential (primary) hypertension; Z79.82 Long term (current) use of aspirin
CPT/HCPCS: 36415; 80053; 93005; 96360; 99284; 70450; 83735; 84484; 85025; 85379; 93010; 99285

== ENCOUNTER 2022-08-21 01:52 | Outpatient (CLI) | payer MEDICARE, MEDICAID, SELFPAY ==
--- NOTE | 2022-08-21 06:45 | DI.US_ITS ---
APPROVED REPORT EXAM: Comprehensive 2D, Doppler, and color-flow Echocardiogram Patient Location: Out-Patient Lithoplate Maker: Rashard Arrington RDMS, RVT Indications: CP, HTN Other Information Study Quality: Adequate Conclusion Normal left ventricular wall thickness and chamber size. Estimated ejection fraction is 55%. There are no segmental wall motion abnormalities Normal right ventricular size and systolic function Both atria are normal in size There is no structural or hemodynamically significant valvular disease Normal estimated right ventricular systolic pressure 23 mmHg Wall motion Left Ventricle The left ventricle is normal size. Left ventricular systolic function is normal. There is normal left ventricular wall thickness. There is normal LV segmental wall motion. There is no ventricular septal defect visualized. LVEF is 55%. Right Ventricle The right ventricle is normal size. The right ventricular systolic function is normal. The RVSP is 22 .6 mmHg. Atria The left atrium size is normal. The right atrium size is normal. The interatrial septum is intact wit h no evidence for an atrial septal defect. Aortic Valve The aortic valve is normal in structure. Aortic valve is trileaflet. There is no aortic valvular sten osis. No aortic regurgitation is present. Mitral Valve The mitral valve is normal in structure. No evidence of mitral valve stenosis. Trace mitral regurgita tion. Tricuspid Valve The tricuspid valve is normal in structure. There is no tricuspid valve stenosis. Trace tricuspid reg urgitation. Pulmonic Valve The pulmonary valve is normal in structure. There is no pulmonic valvular stenosis. There is no pulmo robert valvular regurgitation. Great Vessels The aortic root is normal in size. The ascending aorta is normal in size. Aortic arch is normal in ca liber. IVC is normal in size and collapses >50% with inspiration. Pericardium There is no pericardial effusion. 2D Dimensions IVSD d PLAX 0.94 cm M: 0.6-1.2 LV Vol A2C d MOD 88.1 mL LVPW d PLAX 0.96 cm M: 0.6 - 1.2 LV Vol A4C d MOD 107.0 mL LVID d PLAX 4.69 cm M: 4.2 - 5.8 LA vol/ BSA A4C s A-L 22.3 mL/m2 LVDs 3.50 cm M: 2.5 - 4.0 LA Area A4C s MOD 18.20 cm2 Ao Root d 2.65 cm M: 3.1 - 3.7 LV EF A4C MOD 51.9 % Ao Asc Diam d 3.42 cm M: 2.6 - 3.4 LV EF A2C MOD 57.6 % LV EF Teichholz 49.5 % LV EF Biplane MOD 54.9 % LVEF (Fontanez's) 54.91 % M: 52 - 72 SV 53.77 mL LV Volume 69.54 mL M: 62 - 150 SV Index 22.60 mL/m2 LV Volume Index 29.21 mL/m2 M: 34 - 74 LV Vol Biplane MOD 97.9 mL FS 25.00 % M-Mode TAPSE 1.96 cm (M/F) >1.7 LV Diastology MV E' medial 0.118 (>0.07 m/s) E/A Ratio 1.3 LV E/e MED 7.30 (<14) MV E Vmax 0.87 (0.4-1.3 m/s) MV E' lateral 0.120 (>0.1 m/s) MV A Vmax 0.65 (0.4-1.3 m/s) LV E/e LAT 7.15 (<14) MV E/A Ratio 1.26 MV E/E' medial 7.31 MV E/E' lateral 7.20 Aortic Valve LVOT Area 3.46 cm2 LVOT Diam s 2.05 cm AoV Vmax 1.09 m/s AoV Mean Ji. 0.85 m/s AoV Peak Grad 4.8 mmHg AoV Mean Grad 3.1 mmHg AoV VTI 0.237 m Mitral Valve MV DT 228 (160-240 msec) MV PHT 66 msec MV Area PHT 3.33 cm2 MV VTI 0.285 m Pulmonary Valve PV Vmax 0.93 (0.5-1.5 m/s) RVOT Peak Gr. 1.55 mmHg PV Peak Grad 3.5 mmHg RVOT Mean Gr. 0.95 mmHg PV Mean Grad 2.5 mmHg RVOT VTI 0.158 m PV VTI 0.255 m RVOT Vmax 0.62 m/s Tricuspid Valve TR Peak Grad 19.5 mmHg TR Vmax 2.21 m/s RA Pressure 3.00 mmHg RVSP (TR) 22.6 mmHg
== END 2022-08-21 02:12 ==
LOC: DI 01:52
PROVIDERS: PCP Nurse Practitioner Family; Visit Provider Nurse Practitioner Family
DX: I10 Essential (primary) hypertension (principal); R07.9 Chest pain, unspecified
CPT/HCPCS: 93306

== ENCOUNTER 2022-10-15 11:58 | Emergency (ER) | payer MEDICARE, MEDICAID, SELFPAY ==
[2022-10-15 12:04] VITALS: BP 129/85; PULSE 79; RESP 18; TEMP 36.7; O2SAT 98
--- NOTE | 2022-10-15 13:10 | W.ED.GENAD ---
Discharge Plan Disposition Patient Disposition: Home Discharge Details Clinical Impression: History of shingles Primary Care Provider: Josie Kaur ED Provider: Marysol Arreola Home Meds and New Rx's Prescriptions: New valacyclovir [Valtrex] 1 gram tablet 1,000 mg PO TID Qty: 21 0RF mupirocin 2 % ointment 1 applic topical BID Qty: 22 0RF Continued aspirin [Adult Aspirin Regimen] 81 mg tablet,delayed release (DR/EC) 81 mg PO DAILY ibuprofen 800 mg tablet 800 mg PO Q6H PRN (Reason: pain) Qty: 90 0RF Rx Instructions: Take routinely x 7 days, then take as needed acetaminophen [Tylenol Extra Strength] 500 mg tablet 1,000 mg PO BID & HS Qty: 90 0RF Rx Instructions: Take routinely x 7 days then as needed baclofen 10 mg tablet 10 mg PO BID MDD 20mg PRN (Reason: sciatica) Qty: 20 0RF Rx Instructions: Take 10mg (1 tab) up to 2x per day by at least 8 hours. chlorthalidone 25 mg tablet 25 mg PO DAILY Qty: 90 3RF losartan 50 mg tablet 75 mg PO DAILY 90 Days Qty: 135 3RF hydrocortisone-acetic acid 1-2 % drops 4 drp otic (ear) TID 14 Days Qty: 10 1RF Rx Instructions: Left ear meclizine [Antivert] 25 mg tablet,chewable 25 mg PO BID PRN (Reason: dizziness) Qty: 20 0RF Discharge Instructions Additional Instructions: I suspect you have shingles, this is contagious, although the vast goals crust over Stay away from people who are , small children, and immunosuppressed, elderly mupirocin topically, wash your hands immediately afterwards soap and water Take the Valtrex as prescribed Stand Alone Forms: Work Release Referrals: Josie Kaur NP [Primary Care Provider] - Discharge Data Discharge Date/Time-TO BE ENTERED AT DEPARTURE: 10/15/22 13:31 Medical Decision Making Patient presents with a rash on forehead, just suspect shingles We will start on Valtrex Mupirocin ointment Return precautions reviewed and patient expressed understanding, no evidence of ocular involvement HPI General Date/Time Provider Initiated Documentation: 10/15/22 12:55. HPI Narrative: This 47-year-old male presents with report of swelling on his forehead for the past week with vesicles today. Denies any vision change or headache. Otherwise reportedly healthy. Denies fever or chills. Related Data Home Medications Medication Instructions Recorded Confirmed acetaminophen 500 mg tablet 1,000 mg PO BID & HS fever #90 tabs 06/16/21 10/16/22 (Tylenol Extra Strength) ibuprofen 800 mg tablet 800 mg PO Q6H PRN pain #90 tabs 06/16/21 10/16/22 aspirin 81 mg tablet,delayed 81 mg PO DAILY 07/25/21 10/16/22 release (Adult Aspirin Regimen) baclofen 10 mg tablet 10 mg PO BID PRN sciatica #20 tabs 06/04/22 10/16/22 chlorthalidone 25 mg tablet 25 mg PO DAILY #90 tabs 07/02/22 10/16/22 losartan 50 mg tablet 75 mg PO DAILY 90 days #135 tabs 07/02/22 10/16/22 meclizine 25 mg chewable tablet 25 mg PO BID PRN dizziness #20 tabs 07/11/22 10/16/22 (Antivert) hydrocortisone-acetic acid 1 %-2 % 4 drp otic (ear) TID 14 days #10 mL 10/04/22 10/16/22 ear drops mupirocin 2 % topical ointment 1 applic topical BID #22 grams 10/15/22 10/16/22 valacyclovir 1 gram tablet 1,000 mg PO TID #21 tabs 10/15/22 10/16/22 (Valtrex) Previous Rx's Medication Instructions Recorded acetaminophen 500 mg tablet 1,000 mg PO BID & HS fever #90 tabs 06/16/21 (Tylenol Extra Strength) ibuprofen 800 mg tablet 800 mg PO Q6H PRN pain #90 tabs 06/16/21 baclofen 10 mg tablet 10 mg PO BID PRN sciatica #20 tabs 06/04/22 chlorthalidone 25 mg tablet 25 mg PO DAILY #90 tabs 07/02/22 losartan 50 mg tablet 75 mg PO DAILY 90 days #135 tabs 07/02/22 meclizine 25 mg chewable tablet 25 mg PO BID PRN dizziness #20 tabs 07/11/22 (Antivert) hydrocortisone-acetic acid 1 %-2 % 4 drp otic (ear) TID 14 days #10 mL 10/04/22 ear drops mupirocin 2 % topical ointment 1 applic topical BID #22 grams 10/15/22 valacyclovir 1 gram tablet 1,000 mg PO TID #21 tabs 10/15/22 (Valtrex) Allergies Allergy/AdvReac Type Severity Reaction Status Date / Time lisinopril AdvReac Unknown Cough Verified 10/16/22 12:24 General Stated Complaint: HeadInjury CHRISTOPHER: 4 PFSH All Active Problems History of shingles (Acute) Fungal otitis externa (Acute) Chest pain (Acute) Orthopnea (Acute) Lumbosacral spondylosis without myelopathy (Acute) Right lateral epicondylitis (Acute) Elbow pain, right (Acute) Increased body mass index (BMI) (Acute) Adrenal nodule (Acute) Right - 18mm by CT-most likely benign Rec. F/U 12 months LLQ abdominal pain (Acute) Abdominal pain (Acute) Impotence due to erectile dysfunction (Acute) Vitamin D deficiency (Acute) History of open reduction and internal fixation (ORIF) procedure (Acute 08/11/15) Depression (Chronic 02/18/17) Essential hypertension (Chronic) Lumbago (Chronic 12/24/12) Pressure sensation in left ear (Chronic 07/18/17) Smoking (Acute 09/04/17) Medical History Back pain Degenerative lumbar disc Hypertension Lumbar disc disease Surgical History Fracture, Open Treatment (07/28/15) ORIF-RIGHT DISTAL TIBIA; DR. REYES Family History Mother Diabetes Depression Stroke Hyperlipidemia Hypertension Father Heart disease Hyperlipidemia Hypertension Sister Substance abuse Alcohol abuse Depression Sister Essential hypertension Depression Sister Alcohol abuse Sister Substance abuse Alcohol abuse Depression Asthma Cancer Son Depression Son Depression Social History (Updated 06/05/22 @ 15:25 by Alicia Chamberlain) Smoking/Tobacco Use Status: Current every day Tobacco Type: cigarettes Tobacco: How many years used: 35 Quit status: considering quitting Second Hand Exposure: Yes Counseling given: counseling >3 minutes Smoking risk assessment performed?: Yes Alcohol Intake: current Alcohol Intake frequency: a few times a month Alcohol type: beer Drug use: Current Sobriety Substance use type: former substance user Counseling given: No Counseling provided: none Caregiver/Support person: No Household members: spouse and children Housing: apartment Do you need help understanding health information?: Rarely Pets and animals: Yes Pets and animals: cat(s) Sexually active: Yes Do you think of yourself as: straight/heterosexual Current gender identity: male What is your relationship status?: How often do you talk on the phone with friends or family?: three or more times per week How often do you get together with friends or relatives?: never How often do you attend alevism or tenriism services?: decline to answer Do you belong to any clubs or organized social groups?: no Panel score (0-1 are the most socially isolated patients): 2 What type of physical activity do you participate in: walking and running Duration: > 90 minutes/day Frequency: daily Karen/Roman Catholic: No preference Special karen needs: No Agree to transfusion: No Seatbelt use: always Helmet use: No Drive intox or ride w/intox cement truck driver: No Do you feel safe at home: Yes Do you feel safe in your relationship?: Yes Exam HENMT Other: Vesicles and swelling noted to left upper forehead, no conjunctivitis or visible eye involvement Course Vital Signs Vital signs: Vital Signs Temperature 36.7 C 10/15/22 12:04 Pulse 79 10/15/22 12:04 Respiratory Rate 18 10/15/22 12:04 Blood Pressure 129/85 10/15/22 12:04 Pulse Oximetry 98 10/15/22 12:04 Temperature 36.7 C 10/15/22 12:04 Temperature Source Temporal Artery Scan 10/15/22 12:04 Pulse 79 10/15/22 12:04 Respiratory Rate 18 10/15/22 12:04 Respiratory Effort Normal, Non-Labored 10/15/22 12:07 Blood Pressure 129/85 10/15/22 12:04 Pulse Oximetry 98 10/15/22 12:04 Oxygen Delivery Method Room Air 10/15/22 12:04 Oxygen Flow Rate 0 10/15/22 12:04 PAWSS Have you Been Recently Intoxicated or Drunk Within the Last 30 days?: No Have you Ever Experienced Previous Episodes of Alcohol Withdrawal?: No Have you ever Experienced Withdrawal Seizures?: No Have you ever Experienced Delirium Tremens(DT)s?: No Have you ever undergone Alcohol Rehabilitation Treatment (i.e, inpt ot outpatient treatment programs)?: No Have you ever Experienced Blackouts?: No Have you ever Combined Alcohol with other Downers within the last 90 days?: No Have you ever Combined Alcohol with any other Substance of Abuse during the last 90 days?: No Positive Blood Alcohol level on Presentation? [PCS.BAL]: No Evidence of Increased Autonomic Activity (i.e. HR>120, tremor, sweating, agitation, nausea)?: No Result: 0
== END 2022-10-15 13:31 | disposition home or self-care (01) ==
PROVIDERS: Emergency Provider Physician Assistant; PCP Nurse Practitioner Family
DX: R22.0 Localized swelling, mass and lump, head (principal); Z86.19 Personal history of other infectious and parasitic diseases
CPT/HCPCS: 99283

== ENCOUNTER 2023-02-14 13:03 | Outpatient (CLI) | payer MEDICARE, SELFPAY ==
[2023-02-14 16:17] LABS: HGB 14.3 g/dL (13.5-17.5); MCH 31.8 pg (27.0-33.0); MCHC 34.9 % (32.0-36.0); MCV 91 fL (80-95); Platelet Count 289 10^3/uL (130-400); RBC 4.49 10^6/uL (4.36-5.78); RDW 12.7 % (11.8-14.1); RDW-SD 42.3 fL; WBC 8.93 10^3/uL (4.4-10.8)
[2023-02-14 16:43] LABS: Hemoglobin A1C 5.5 % (<5.7)
[2023-02-14 17:14] LABS: ALT 30 U/L (16-63); AST 17 U/L (15-37); Albumin 3.9 g/dL (3.4-5.0); Alkaline Phosphatase 112 U/L (46-116); Anion Gap 10.7 mmol/L (3-11); BUN 17 mg/dL (7-18); Bilirubin, Total 0.3 mg/dL (0.2-1.0); CO2 24.3 mmol/L (21.0-32.0); CREATININE 1.8 mg/dL (0.70-1.30); Calcium 9.5 mg/dL (8.5-10.1); Chloride 106 mmol/L (98-107); Estimated GFR 45.86 (mL/min/1.73m2); Glucose 110 mg/dL (74-106); NT-proBNP 21 pg/mL (<300); Potassium 3.8 mmol/L (3.5-5.1); Sodium 141 mmol/L (136-145); Total Protein 7.2 g/dL (6.4-8.2)
[2023-02-14 18:17] LABS: Calculated LDL 70 mg/dL (<100); Cholesterol 152 mg/dL (<200); HDL Cholesterol 43 mg/dL (40-60); Triglyceride 199 mg/dL (<150)
== END 2023-02-14 13:04 | disposition home or self-care (01) ==
LOC: LBO 13:03
PROVIDERS: PCP Nurse Practitioner Family; Visit Provider Nurse Practitioner Family
DX: E27.8 Other specified disorders of adrenal gland (principal); F17.200 Nicotine dependence, unspecified, uncomplicated; F32.9 Major depressive disorder, single episode, unspecified; I10 Essential (primary) hypertension; R63.8 Other symptoms and signs concerning food and fluid intake; R06.01 Orthopnea; R73.09 Other abnormal glucose; E55.9 Vitamin D deficiency, unspecified; N52.9 Male erectile dysfunction, unspecified
CPT/HCPCS: 36415; 80053; 80061; 85027; 83036; 83880

== ENCOUNTER → 2023-02-21 14:17 | Outpatient (BNVA) | payer MEDICARE, SELFPAY | PROVIDERS: PCP Nurse Practitioner Family; Referring Provider Nurse Practitioner Family; Visit Provider Surgery | DX: Z12.11 Encounter for screening for malignant neoplasm of colon (principal); R63.8 Other symptoms and signs concerning food and fluid intake | CPT/HCPCS: 99242 ==

== ENCOUNTER 2023-11-29 21:38 | Emergency (ER) | payer SELFPAY ==
--- NOTE | 2023-11-29 21:30 | RT.EKG_ITS ---
APPROVED REPORT Exam: Resting ECG Reason for Exam: chest pain Patient Location: E HR:70 bpm ECG Measurements Heart Rate 70 AXIS MT 203 P 48 QRSd 108 QRS 41 QT 384 T 82 QTc 413 Conclusion Sinus rhythm...normal P axis, V-rate 60- 99 Borderline prolonged MT interval...MT >202, V-rate 50- 90
[2023-11-29 21:38] VITALS: BP 125/84; PULSE 74; RESP 16; TEMP 36.6; O2SAT 95
[2023-11-29 21:46] VITALS: RESP 13
--- NOTE | 2023-11-29 22:13 | DI.RAD_ITS ---
Exam(s) XR CHEST 2V PA LATERAL EXAM: XR CHEST 2V PA LATERALz CLINICAL HISTORY: CP TECHNIQUE: 2D digital imaging was performed. Two views. COMPARISON: CR,XR XR PORTABLE CHEST AP from 05/07/2020 FINDINGS: Suboptimal pulmonary inflation. HEART: Normal size. Aorta: Not dilated. PULMONARY VASCULATURE: Normal. MEDIASTINUM: Unremarkable. LUNGS: Clear. PLEURAL SPACE: No pleural effusion or pneumothorax. BONE:Unremarkable for age. SOFT TISSUES: Unremarkable. IMPRESSION: No acute abnormality. DATA REPOSITORY: RADIATION DOSE DELIVERED:
[2023-11-29 22:15] LABS: Abs Immature Grans 0.02 10^3/uL (0.0-0.06); Absolute Basophil Count 0.11 10^3/uL (0.0-0.2); Absolute Eosinophil Count 0.62 10^3/uL (0.0-0.7); Absolute Lymphocyte Count 4.83 10^3/uL (1.2-3.4); Absolute Neutrophil Count 3.99 10^3/uL (1.2-6.7); Basophils % 1.1 %; Eosinophils % 5.9 %; HCT 42.7 % (40.0-50.0); HGB 14.7 g/dL (13.5-17.5); Immature Grans % 0.2 %; Lymphocytes % 46.1 %; MCH 31.3 pg (27.0-33.0); MCHC 34.4 % (32.0-36.0); MCV 91 fL (80-95); MPV 10.7 fL (8.0-11.0); Monocytes % 8.6 %; Neutrophils % 38.1 %; Platelet Count 314 10^3/uL (130-400); RBC 4.69 10^6/uL (4.36-5.78); RDW 12.5 % (11.8-14.1); RDW-SD 41.6 fL; WBC 10.47 10^3/uL (4.4-10.8)
[2023-11-29 22:26] LABS: ETHANOL BLOOD 100.7 mg/dL (<10)
[2023-11-29 22:30] LABS: ALT 32 U/L (16-63); AST 14 U/L (15-37); Alkaline Phosphatase 96 U/L (46-116); Anion Gap 14.1 mmol/L (3-11); BUN 11 mg/dL (7-18); Bilirubin, Total 0.39 mg/dL (0.2-1.0); CO2 21.9 mmol/L (21.0-32.0); CREATININE 1.1 mg/dL (0.70-1.30); Calcium 9.2 mg/dL (8.5-10.1); Chloride 105 mmol/L (98-107); Estimated GFR 82.81 (mL/min/1.73m2); Glucose 79 mg/dL (74-106); Magnesium 2.2 mg/dL (1.8-2.4); Potassium 3.3 mmol/L (3.5-5.1); Sodium 141 mmol/L (136-145); Total Protein 6.9 g/dL (6.4-8.2); Troponin I < 50 ng/L (< or =60)
[2023-11-29 22:37] LABS: NT-proBNP 29 pg/mL (<300)
[2023-11-29] MEDS: Potassium Chloride Liquid 20 MEQ PKT 40 MEQ PO (22:39)
[2023-11-29 22:46] LABS: D-Dimer 400 ng/mlFEU (<500)
--- OUTSIDE RECORDS SUMMARY | 2023-11-29 23:01 | XMS_ITS | Encounter Summary ---
Author Organization [facility] Address [address] [place] [address] Care Team Providers Care Bicycle Taxi Driver Name Role Phone Unknown, Provider Primary Care Provider Encounter Details Date Type Department Care Team (Late st Contact Info) Description 10/25/2010 Results Only [facility] Laboratory Services - [facility] ([facility]) [address] [place] [address] Errol Roman MD [address] [address] [place], [place] [id number] Social History Tobacco Use Types Packs/Day Years Used Date Smoking Tobacco: Never Assessed Sex and Gender Information Value Date Recorded Sex Assigned at Not on file Gender Identity Not on file Sexual Orientation Not on file documented as of this encounter Plan of Treatment Not on file documented as of this encounter Procedures Procedure Name Priority Date/Time Associated Diagnosis Comments SURGICAL PATHOLOGY Routine 10/25/2010 0:00 EDT documented in this encounter Results * SURGICAL PATHOLOGY (10/25/2010 0:00 EDT) Pathology Report: SURGICAL PATHOLOGY REPORT ? Reports generated via electronic interface contain original data; ? however they are lacking the format of the original report. ? Caution should be taken when reading/interpreti ng unformatted reports. ? Name: ? TITUS, VALERIA ? Accession #: ? [id number] ? : ? 1975 (Age: 35) ??M ? Collect Date: ? 10/25/2010 ? Location: ? [facility] ? Receive Date: ? 10/25/2010 ? Provider: ERROL ROMAN MD ? Copy to: GLADYS TURNER MD ? Final Pathologic Diagnosis: ? A. ?Skin of axilla, right, superior, shave biopsy: ? 1. ?Melanocytic nevus, compound type. ? B. ?Skin of axilla, right, inferior, shave biopsy: ? 1. ?Melanocytic nevus, compound type. ? Microscopic Description: ? (A, B) Sections are of a pedunculated papule. ??The epidermis is ? hyperplastic with accentuation of the rete architecture and formation of horn ?? pseudocysts. ??The papule is formed by a circumscribed and symmetric compound ? proliferation of melanocytes. ??The junctional component consists primarily of ?? nests. ??The nests are generally small but vary to a mild degree in shape. ??The ?? melanocytes are slightly enlarged but have relatively uniform round-oval nuclei and a moderate amount of cytoplasm containing melanin pigment. ??The dermal ? component consists of nests, cords, and strands of similar melanocytes showing ?? data collection interviewer maturation with descent. ??Deeper levels have been examined on specimens (A) and (B). ??(Dr. Zepeda)/michael ? Document reviewed and electronically signed by: ? BANDAR ZEPEDA MD ? Report ??Date: 10/30/2010 16:42 ? By the signature above, the attending physician certifies that he/she has ? personally conducted a gross and/or microscopic examination of the described ? specimens and rendered or confirmed the above diagnosis. ? Specimen(s) Received: ? R axilla, two pigmented lesions ? A. ??Superior (#1) ? B. ??Inferior (#2) ? Clinical History: ? Pigmented lesions R axilla ? Gross Description: ? Received in formalin labelled Valeria Dale and Carla santamariaa superior #1 is a 0.3 x 0.2 x 0.2 cm irregular, olivier-brown, cobblestoned papule. ??Also ? received are two olivier-white irregular tissue fragments measuring 0.1 x 0.1 x 0.1 cm and 0.5 by 0.2 by less than 0.1 cm. ??The specimen is entirely submitted ? intact as (A). ? Received in formalin labelled Valeria Dale and R axilla inferior #2 is a 0.4 x 0.3 cm irregular shave biopsy of white skin. ??There is a central, 0.2 by ?? 0.2 by less than 0.1 cm, circular, olivier, smooth papule. ??The specimen is ? submitted intact as (B). ??(Effie Hui)/lgk ? End of Report ? [facility] 10/25/2010 10/25/2010 9:0 1 EDT Errol Roman MD PATHOLOGY ORDERABLES [facility] [address] [place] [address] documented in this encounter Visit Diagnoses Not on filedocumented in this encounter Care Teams Bicycle Taxi Driver Relationship Specialty Start Date End Date Unknown, Provider, PCP - General 10/25/10 documented as of this encounter
--- OUTSIDE RECORDS SUMMARY | 2023-11-29 23:01 | XMS_ITS | Encounter Summary ---
Author Organization [facility] Address [address] [place] [address] Care Team Providers Care Microsoft Infrastructure Consultant Name Role Phone Unknown, Provider Primary Care Provider [phone] Encounter Details Date Type Department Care Team (Late st Contact Info) Description 05/12/2020 Lab Requisition [facility] Pathology & Laboratory Medicine - [facility] [address] [place] [address] Outr Resulting Lab, Provider Social History Tobacco Use Types Packs/Day Years Used Date Smoking Tobacco: Never Assessed Sex and Gender Information Value Date Recorded Sex Assigned at Not on file Gender Identity Not on file Sexual Orientation Not on file documented as of this encounter Plan of Treatment Not on file documented as of this encounter Procedures Procedure Name Priority Date/Time Associated Diagnosis Comments ZZCOVID-19 TEST [facility] PCR Today 05/12/2020 9:01 EST COVID-19 TESTING Routine 05/12/2020 9:01 EST documented in this encounter Results * COVID-19 TEST [facility] PCR (05/12/2020 9:01 EST) Swab ENTIRE NASOPHARYNX / Unknown 05/12/2020 9:01 EST 05/12/2020 20:24 EST Provider Outr Resulting Lab MICROBIOLOGY - GENERAL ORDERABLES [facility] [address] [place] [address] * COVID-19 TESTING (05/12/2020 9:01 EST) COVID-19 rt-PCR Result Negative Negative 05/13/2020 16:58 EST [facility] Comment: This test has not been FDA cleared or approved. This test has been authorized by FDA under an EUA for use by authorized laboratories. This test has been authorized only for detection of nucleic acid from 2019-nCoV, not for any other viruses or pathogens. This test is only authorized for the duration of the declaration that circumstances exist justifying the authorization of emergency use of in vitro diagnostic tests for detection and/or diagnosis of 2019-nCoV under section 564(b)(1) of Act, 21 U.S.C ?? 360bbb-3(b) (1), unless the authorization is terminated or revoked sooner. Negative results do not preclude 2019-nCoV infection and should not be used as the sole basis for treatment or other patient management decisions. Negative results must be combined with clinical observations, patient history, and epidemiological information. Performed on the UUC[employer] Fusion instrument Performing Lab [place] [facility] 05/13/2020 16:58 EST [facility] Swab 05/12/2020 9:01 EST 05/12/2020 20:24 EST Provider Outr Resulting Lab MICROBIOLOGY - GENERAL ORDERABLES [facility] [address] [place] [address] documented in this encounter Visit Diagnoses Not on filedocumented in this encounter Care Teams Microsoft Infrastructure Consultant Relationship Specialty Start Date End Date Unknown, Provider, PCP - General 10/25/10 documented as of this encounter
--- OUTSIDE RECORDS SUMMARY | 2023-11-29 23:01 | XMS_ITS | Clinical Summary ---
Author Organization [facility] Address [address] [place] [address] Care Team Providers Care Track Walker Name Role Phone Unknown, Provider Primary Care Provider Social History Tobacco Use Types Packs/Day Years Used Date Smoking Tobacco: Never Assessed Sex and Gender Information Value Date Recorded Sex Assigned at Not on file Gender Identity Not on file Sexual Orientation Not on file Plan of Treatment Health Maintenance Due Date Last Done Comments Hepatitis C Screen 1975 Hepatitis B Vaccine (1 of 3 - 19+ 3-dose series) 01/29 COVID-19 Vaccine (2022-24 season) 2023 Care Teams Track Walker Relationship Specialty Start Date End Date Unknown, Provider, PCP - General 10/25/10
--- OUTSIDE RECORDS SUMMARY | 2023-11-29 23:01 | XMS_ITS | Clinical Summary ---
[place] [address] Care Team Providers Care Bowl Attendant Name Role Phone Unknown Primary Care Provider Unavailabl e Allergies No known active allergies Immunizations Name Administration Dates Next Due TD Adult 09/09/2003 Social History Tobacco Use Types Packs/Day Years Used Date Smoking Tobacco: Never Assessed Sex and Gender Information Value Date Recorded Sex Assigned at Not on file Gender Identity Not on file Sexual Orientation Not on file Plan of Treatment Health Maintenance Due Date Last Done Comments CT Colonography 1975 Colonoscopy 1975 Colorectal Cancer Screening 1975 FIT DNA 1975 FIT 1975 Sigmoidoscopy (10 year) with FIT yearly 1975 Sigmoidoscopy 1975 HIV screen 1993 Hepatitis C Screening 1993 Lipid Screening 1993 Hepatitis B vaccine (0-59 yrs) (1) 1994 Tdap adult 1994 Tetanus vaccine 09/08/2013 09/09/2003 Covid-19 Vaccine ( season) 2023 Influenza (Flu) vaccine (1 o f 1 - Influenza standard series) 01/19/2024 Care Teams Bowl Attendant Relationship Specialty Start Date End Date Unknown None PCP - General 02/10/22
--- OUTSIDE RECORDS SUMMARY | 2023-11-29 23:01 | XMS_ITS | Referral Summary ---
Author Organization [facility] Address [address] [place] [address] Care Team Providers Care Mother Tester Name Role Phone Unknown, Provider Primary Care Provider [phone] Social History Tobacco Use Types Packs/Day Years Used Date Smoking Tobacco: Never Assessed Sex and Gender Information Value Date Recorded Sex Assigned at Not on file Gender Identity Not on file Sexual Orientation Not on file Plan of Treatment Not on file Care Teams Mother Tester Relationship Specialty Start Date End Date Unknown, Provider, PCP - General 10/25/10
--- OUTSIDE RECORDS SUMMARY | 2023-11-29 23:01 | XMS_ITS | Encounter Summary ---
Author Organization [facility] [place] [address] Care Team Providers Care Cabbage Salter Name Role Phone Helen Deleon APRN Primary Care Provider Encounter Details Date Type Department Care Team (Late st Contact Info) Description 02/13/2021 Ancillary Procedure Radiology at [facility] [address] [place] [id number] Gabriel Mckinnon MD [address] [facility] [address] Social History Tobacco Use Types Packs/Day Years Used Date Smoking Tobacco: Never Assessed Sex and Gender Information Value Date Recorded Sex Assigned at Not on file Gender Identity Not on file Sexual Orientation Not on file documented as of this encounter Plan of Treatment Not on file documented as of this encounter Procedures Procedure Name Priority Date/Time Associated Diagnosis Comments FILM LIBRARY STORAGE ONLY MR SPINE Routine 02/13/2021 12:00 AM EDT documented in this encounter Results * Film Library- Storage Only MR Spine (02/13/2021 12:00 AM EDT) Narrative [facility] - 02/14/2021 2:43 PM EDT This exam is auto-finalizing. It's purpose is for storage only. Gabriel Mckinnon MD IMG FILM LIBRARY ORD ERABLES [place], [place] documented in this encounter Visit Diagnoses Not on filedocumented in this encounter Care Teams Cabbage Salter Relationship Specialty Start Date End Date Helen Deleon APRN [address] [place] [address] PCP - General Family Medicine 05/20/20 02/09/22 documented as of this encounter
--- NOTE | 2023-11-29 23:05 | DI.VRAD_ITS ---
PROCEDURE INFORMATION: Exam: XR Chest Exam date and time: 11/29/2023 10:11 PM Age: 48 years old Clinical indication: Chest wall pain; Additional info: Cp TECHNIQUE: Imaging protocol: Radiologic exam of the chest. Views: 2 views. COMPARISON: CR XR PORTABLE CHEST AP 05/07/2020 12:14 AM FINDINGS: Lungs: Unremarkable. No consolidation. Pleural spaces: Unremarkable. No pleural effusion. No pneumothorax. Heart/Mediastinum: Unremarkable. No cardiomegaly. Bones/joints: Unremarkable. IMPRESSION: No acute findings. Dictated and Authenticated by: Asif Shah MD. Ordering:SONYA Ackerman MD
--- NOTE | 2023-11-29 23:23 | ED.GENADUL_ITS ---
Discharge Plan Disposition Patient Disposition: Against Medical Advice Condition: Fair Discharge Details Clinical Impression: Syncope, Hypokalemia Primary Care Provider: Josie Karu ED Provider: Yodit Cisse Home Meds and New Rx's Prescriptions: No Action aspirin [Adult Aspirin Regimen] 81 mg tablet,delayed release (DR/EC) 81 mg PO DAILY ibuprofen 800 mg tablet 800 mg PO Q6H PRN (Reason: pain) Qty: 90 0RF Rx Instructions: Take routinely x 7 days, then take as needed acetaminophen [Tylenol Extra Strength] 500 mg tablet 1,000 mg PO BID & HS Qty: 90 0RF Rx Instructions: Take routinely x 7 days then as needed baclofen 10 mg tablet 10 mg PO BID MDD 20mg PRN (Reason: sciatica) Qty: 20 0RF Rx Instructions: Take 10mg (1 tab) up to 2x per day by at least 8 hours. losartan 100 mg tablet 100 mg PO DAILY Qty: 90 3RF chlorthalidone 25 mg tablet 25 mg PO DAILY Qty: 90 3RF Discharge Instructions Instructions: Syncope (Fainting) (DC) Additional Instructions: We would like you to stay for further testing and monitoring but you have chosen to leave against medical advice. I am concerned that you may have a serious cardiac arrhythmia that could lead to another episode and/or or permanent disability. Please return to the emergency department if you change your mind, if this happens again, if you develop any chest or shortness of breath or feel like you are going to pass out. Please call your primary care doctor and your professional bondsman on Saturday to schedule appointments for as soon as possible (no later than Saturday) to follow up on your visit here. Referrals: Josie Kaur NP [Primary Care Provider] - [facility] General Mode of arrival: ambulatory . Date/Time Provider Initiated Documentation: 11/29/23 21:50 . Limitations to Documentation: no limitations . Information obtained by: patient and family . HPI Narrative: 48yo M with hx myotonic dystrophy, HTN, denies prior cardiac history (though states he has seen a professional bondsman) presenting for syncope. History from patient and at bedside. They were out dancing tonight, did have some alcohol. While dance pt became unresponsive, was able to lower him to nearby chair and he did not fall or strike his head. He was unresponsive for about 2 minutes and started to turn blue around the lips, came around with sternal rub. Some 'clenching' of his abdomen while he was unresponsive, no tonic clonic movements of the extremitites. When he came to he was not confused. He does not remember passing out. He did not feel unwell before passing out. He did have some chest pain about 30 minutes before losing consciousness which resolved on it's own after about 5 minutes. Patient reports pain was dull, substernal, and did not radiate including no radiation to his back (triage note does indicate left sided chest pain radiating to back, pt denies this to me). No chest pain when he lost consciousness, regained consciousness, or currently. No shortness of breath at any point. Had similar symptoms happen once before over a year ago after consuming ETOH. He is otherwise in his usual state of health with no fevers, chills, rash, nausea, vomiting, abdominal pain, back pain, numbness, tingling, weakness, vertigo, headache, vision changes, or other concerns. Related Data Home Medications ?Medication ?Instructions ?Recorded ?Confirmed acetaminophen 500 mg tablet 1,000 mg (2 x 500 mg) PO BID & HS 06/16/21 03/01/23 (Tylenol Extra Strength) fever #90 tabs ibuprofen 800 mg tablet 800 mg PO Q6H PRN pain #90 tabs 06/16/21 03/01/23 aspirin 81 mg tablet,delayed 81 mg PO DAILY 07/25/21 03/01/23 release (Adult Aspirin Regimen) baclofen 10 mg tablet 10 mg PO BID PRN sciatica #20 tabs 06/04/22 03/01/23 losartan 100 mg tablet 100 mg PO DAILY #90 tabs 11/01/22 03/01/23 chlorthalidone 25 mg tablet 25 mg PO DAILY #90 tabs 07/29/23 Previous Rx's ?Medication ?Instructions ?Recorded acetaminophen 500 mg tablet 1,000 mg (2 x 500 mg) PO BID & HS 06/16/21 (Tylenol Extra Strength) fever #90 tabs ibuprofen 800 mg tablet 800 mg PO Q6H PRN pain #90 tabs 06/16/21 baclofen 10 mg tablet 10 mg PO BID PRN sciatica #20 tabs 06/04/22 losartan 100 mg tablet 100 mg PO DAILY #90 tabs 11/01/22 chlorthalidone 25 mg tablet 25 mg PO DAILY #90 tabs 07/29/23 Allergies Allergy/AdvReac Type Severity Reaction Status Date / Time lisinopril AdvReac Unknown Cough Verified 11/29/23 22:07 General Stated Complaint: Chest Pain CHRISTOPHER: 2 Review of Systems Narrative: see HPI Exam Narrative Exam Narrative: General: Alert, well appearing, well nourished, in no acute distress. Head: Normocephalic, atraumatic Neck: Trachea midline, ?Neck supple. ENT: ?MMM.? No oropharygeal lesions or exudate. Cardiac: ?RRR, no murmurs appreciated Resp: No respiratory distress. CTAB. Abd: ?Soft, non-distended, nontender Extremities: ?No deformities.? No peripheral edema. Neuro: ? GCS 15.? PERRL.? EOMI.? Fluent speech, no dysarthria. Motor- 5/5 strength symmetric bilateral upper and lower extremities including shoulder abductors/adductors, elbow flexors/extensors, wrist flexors/extensors, finger abductors/adductors, hipflexors/extensors, knee flexors/extensors, ankle dorsiflexors and planter flexors. Sensation- ?Intact to light touch and symmetric multiple dermatomes including upper and lower extremities Coordination- No dysmetria on finger to nose Gait/station: ?Normal stance.? No truncal ataxia. Steady gait with equal normal steps CRANIAL NERVES: II: Pupils equal and reactive, III, IV, : EOM intact, no gaze preference or deviation, no nystagmus. V: normal sensation in V1, V2, and V3 segments bilaterally VII: no asymmetry, no nasolabial fold flattening VIII: normal hearing to speech IX, X: normal palatal elevation, no uvular deviation XI: 5/5 head turn and 5/5 shoulder shrug bilaterally XII: midline tongue protrusion Course Vital Signs Vital signs: Vital Signs Temperature 36.6 C 11/29/23 21:38 Pulse 74 11/29/23 21:38 Respiratory Rate 16 11/29/23 21:38 Blood Pressure 125/84 11/29/23 21:38 Pulse Oximetry 95 11/29/23 21:38 Temperature 36.6 C 11/29/23 21:38 Pulse 74 11/29/23 21:38 Respiratory Rate 13 11/29/23 21:46 Respiratory Effort Normal, Non-Labored, Short of Breath 11/29/23 21:46 Respiratory Depth Normal 11/29/23 21:46 Respiratory Pattern Normal 11/29/23 21:46 Blood Pressure 125/84 11/29/23 21:38 Blood Pressure Position Supine 11/29/23 21:38 Pulse Oximetry 95 11/29/23 21:38 Oxygen Delivery Method Room Air 11/29/23 21:38 Oxygen Flow Rate 0 11/29/23 21:38 Pain Level 0 11/29/23 21:46 Lab/Test Results Lab/Test Results: Laboratory Tests Range/Units 11/29/23 20:45 WBC (4.4-10.8) 10^3/uL 10.47 RBC (4.36-5.78) 10^6/uL 4.69 Hgb (13.5-17.5) g/dL 14.7 Hct (40.0-50.0) % 42.7 MCV (80-95) fL 91 MCH (27.0-33.0) pg 31.3 MCHC (32.0-36.0) % 34.4 RDW (11.8-14.1) % 12.5 Plt Count (130-400) 10^3/uL 314 MPV (8.0-11.0) fL 10.7 Immature Gran % % 0.2 Neutrophils % % 38.1 Lymphocytes % % 46.1 Monocytes % % 8.6 Eosinophils % % 5.9 Basophils % % 1.1 Nucleated RBC % (0.0-0.3) % 0.0 Absolute Neutrophils (1.2-6.7) 10^3/uL 3.99 Absolute Lymphocytes (1.2-3.4) 10^3/uL 4.83 H Absolute Monocytes (0.1-0.8) 10^3/uL 0.90 H Absolute Eosinophils (0.0-0.7) 10^3/uL 0.62 Absolute Basophils (0.0-0.2) 10^3/uL 0.11 D-Dimer (<500) ng/mlFEU 400 Sodium (136-145) mmol/L 141 Potassium (3.5-5.1) mmol/L 3.3 L Chloride (98-107) mmol/L 105 Carbon Dioxide (21.0-32.0) mmol/L 21.9 Anion Gap (3-11) mmol/L 14.1 H BUN (7-18) mg/dL 11 Creatinine (0.70-1.30) mg/dL 1.1 Est GFR (CKD-EPI 2020) (mL/min/1.73m2) 82.81 Glucose (74-106) mg/dL 79 Calcium (8.5-10.1) mg/dL 9.2 Magnesium (1.8-2.4) mg/dL 2.2 Total Bilirubin (0.2-1.0) mg/dL 0.39 AST (15-37) U/L 14 L ALT (16-63) U/L 32 Alkaline Phosphatase (46-116) U/L 96 Troponin I (< or =60) ng/L < 50 NT-Pro-B Natriuret Pep (<300) pg/mL 29 Total Protein (6.4-8.2) g/dL 6.9 Albumin (3.4-5.0) g/dL 4.0 Ethyl Alcohol (<10) mg/dL 100.7 H Medical Decision Making 48yo M with hx myotonic dystrophy, HTN, denies prior cardiac history (though states he has seen a professional bondsman) presenting for syncope. Assisted to chair by , no fall or HS. 5 minutes of transient chest pain about 30 minutes prior to LOC, none since then. Does not remember passing out; did not feel symptoms right before losing consciousness ( concurs with this). History not suggestive of seizure. No indication for CT head. Most concerning for cardiogenic syncope, though ETOH may also be provoking factor. The first thing Mr. Dale stated when I entered the room was that he wanted to leave; I was able to convince him to stay for blood work and CXR. I reviewed the plan to include at a minimum a 3 hour troponin, possibly a CT scan pending dimer result. -EKG SR, borderline 1st degree HB with GA slightly >200, otherwise appropriate intervals and no ST segment or T wave abnormalities to suggest occlusive MS. -CXR with no focal pneumonia or pneumothorax on my view; agree with radiology read below. -Labs reviewed as below, CBC reassuring with no leukoctysois or anemia, CMP with mild hypokalemia (oral replacement ordered) and slightly elevated gap, ETOH 100 (ETOH ketosis may be contributing to gap), dimer negative (would not further pursue PE with CT scan), BNP negative, initial troponin negative. Patient subsequently states he wants to leave and is not willing to stay for further testing. I discussed with Mr. Dale my concerns that this syncopal event, especially as it occurred with no prodrome, may represent a serious life threatening cardiac arrhythmia and that I would not like to repeat a troponin, keep on the monitor in the ED, and admit him under observation status for 24 hours. I expressed that I am concerned that if he should have another event he could or suffer permanent disability. He voiced understanding of my concerns and again stated that he wanted to leave as I've been here long enough. He has decision making capacity and I have no indication to hold him against his will. Left AMA; written followup instructions were provided to Mr. Dale and he was encouraged to return at any point should he change his mind or his symptoms return. Imaging Data Radiologic Study: Imaging: X-Ray Radiologist's impression: IMPRESSION: No acute findings. Lab Data Lab results reviewed: Yes I reviewed the patient's lab results. Labs: Laboratory Tests Range/Units 11/29/23 11/30/23 20:45 00:54 WBC (4.4-10.8) 10^3/uL 10.47 RBC (4.36-5.78) 10^6/uL 4.69 Hgb (13.5-17.5) g/dL 14.7 Hct (40.0-50.0) % 42.7 MCV (80-95) fL 91 MCH (27.0-33.0) pg 31.3 MCHC (32.0-36.0) % 34.4 RDW (11.8-14.1) % 12.5 Plt Count (130-400) 10^3/uL 314 MPV (8.0-11.0) fL 10.7 Immature Gran % % 0.2 Neutrophils % % 38.1 Lymphocytes % % 46.1 Monocytes % % 8.6 Eosinophils % % 5.9 Basophils % % 1.1 Nucleated RBC % (0.0-0.3) % 0.0 Absolute Neutrophils (1.2-6.7) 10^3/uL 3.99 Absolute Lymphocytes (1.2-3.4) 10^3/uL 4.83 H Absolute Monocytes (0.1-0.8) 10^3/uL 0.90 H Absolute Eosinophils (0.0-0.7) 10^3/uL 0.62 Absolute Basophils (0.0-0.2) 10^3/uL 0.11 D-Dimer (<500) ng/mlFEU 400 Sodium (136-145) mmol/L 141 Potassium (3.5-5.1) mmol/L 3.3 L Chloride (98-107) mmol/L 105 Carbon Dioxide (21.0-32.0) mmol/L 21.9 Anion Gap (3-11) mmol/L 14.1 H BUN (7-18) mg/dL 11 Creatinine (0.70-1.30) mg/dL 1.1 Est GFR (CKD-EPI 2020) (mL/min/1.73m2) 82.81 Glucose (74-106) mg/dL 79 Calcium (8.5-10.1) mg/dL 9.2 Magnesium (1.8-2.4) mg/dL 2.2 Total Bilirubin (0.2-1.0) mg/dL 0.39 AST (15-37) U/L 14 L ALT (16-63) U/L 32 Alkaline Phosphatase (46-116) U/L 96 Troponin I (< or =60) ng/L < 50 Cancelled NT-Pro-B Natriuret Pep (<300) pg/mL 29 Total Protein (6.4-8.2) g/dL 6.9 Albumin (3.4-5.0) g/dL 4.0 Ethyl Alcohol (<10) mg/dL 100.7 H Quality:SDOH Health Related Social Needs: No Data to Display PFSH All Active Problems Hypokalemia (Acute) Syncope (Chronic) Screen for colon cancer (Acute) Fungal otitis externa (Acute) Orthopnea (Acute) Lumbosacral spondylosis without myelopathy (Acute) Right lateral epicondylitis (Acute) Elbow pain, right (Acute) Increased body mass index (BMI) (Acute) Chest pain (Acute) Adrenal nodule (Acute) Right - 18mm by CT-most likely benign Rec. F/U 12 months LLQ abdominal pain (Acute) Abdominal pain (Acute) Impotence due to erectile dysfunction (Acute) Vitamin D deficiency (Acute) History of open reduction and internal fixation (ORIF) procedure (Acute 08/11/15) Depression (Chronic 02/18/17) Essential hypertension (Chronic) Lumbago (Chronic 12/24/12) Pressure sensation in left ear (Chronic 07/18/17) Smoking (Acute 09/04/17) Medical History (Updated 11/29/23 @ 23:26 by Yodit Cisse MD) Stroke 2016 in [place]- F/U regularly with PCP working with keep BP WNL Hypertension Degenerative lumbar disc Lumbar disc disease Back pain Surgical History Fracture, Open Treatment (07/28/15) ORIF-RIGHT DISTAL TIBIA; DR. REYES Family History Mother Diabetes Depression Stroke Hyperlipidemia Hypertension Father Heart disease Hyperlipidemia Hypertension Sister Substance abuse Alcohol abuse Depression Sister Essential hypertension Depression Sister Alcohol abuse Sister Substance abuse Alcohol abuse Depression Asthma Cancer Son Depression Son Depression Social History (Updated 06/05/22 @ 15:25 by Alicia Chamberlain) Smoking/Tobacco Use Status: Current every day Tobacco Type: cigarettes Tobacco: How many years used: 35 Quit status: considering quitting Second Hand Exposure: Yes Counseling given: counseling >3 minutes Smoking risk assessment performed?: Yes Alcohol Intake: current Alcohol Intake frequency: a few times a week Alcohol type: beer Drug use: Current Sobriety Substance use type: former substance user and marijuana Counseling given: No Counseling provided: none Caregiver/Support person: No Household members: spouse and children Housing: apartment Do you need help understanding health information?: Rarely Pets and animals: Yes Pets and animals: cat(s) Sexually active: Yes Do you think of yourself as: straight/heterosexual Current gender identity: male What is your relationship status?: How often do you talk on the phone with friends or family?: three or more times per week How often do you get together with friends or relatives?: never How often do you attend gnosticism or cheondoism services?: decline to answer Do you belong to any clubs or organized social groups?: no Panel score (0-1 are the most socially isolated patients): 2 What type of physical activity do you participate in: walking and running Duration: > 90 minutes/day Frequency: daily Karen/Methodist: No preference Special karen needs: No Agree to transfusion: No Seatbelt use: always Helmet use: No Drive intox or ride w/intox otr van cdl truck driver: No Do you feel safe at home: Yes Do you feel safe in your relationship?: Yes PAWSS Have you Been Recently Intoxicated or Drunk Within the Last 30 days?: Yes Have you Ever Experienced Previous Episodes of Alcohol Withdrawal?: No Have you ever Experienced Withdrawal Seizures?: No Have you ever Experienced Delirium Tremens(DT)s?: No Have you ever undergone Alcohol Rehabilitation Treatment (i.e, inpt ot outpatient treatment programs)?: No Have you ever Experienced Blackouts?: No Have you ever Combined Alcohol with other Downers within the last 90 days?: No Have you ever Combined Alcohol with any other Substance of Abuse during the last 90 days?: No Positive Blood Alcohol level on Presentation? [PCS.BAL]: No Evidence of Increased Autonomic Activity (i.e. HR>120, tremor, sweating, agitation, nausea)?: No Result: 1
--- NOTE | 2023-12-04 10:52 | NUR.NOTE ---
Accessed chart to reconcile [facility] EKG orders with [facility] EKG's in system. Duplicate order cancelled. Nursing Note:
== END 2023-11-29 23:46 | disposition left against medical advice (07) ==
PROVIDERS: Nurse Practitioner Family; Emergency Provider Student in an Organized Health Care Education/Training Program; PCP Nurse Practitioner Family
DX: R55 Syncope and collapse (principal); R07.9 Chest pain, unspecified; E87.6 Hypokalemia; R94.31 Abnormal electrocardiogram [ECG] [EKG]; G71.11 Myotonic muscular dystrophy; I10 Essential (primary) hypertension; F17.210 Nicotine dependence, cigarettes, uncomplicated; Z79.82 Long term (current) use of aspirin; Z86.73 Personal history of transient ischemic attack (TIA), and cerebral infarction without residual deficits; Y90.5 Blood alcohol level of 100-119 mg/100 ml; Z53.29 Procedure and treatment not carried out because of patient's decision for other reasons
CPT/HCPCS: 36415; 80053; 82962; 93005; 99285; 71046; 80320; 83735; 83880; 84484; 85025; 85379; 93010; 99284